=== PATIENT | female | born 1970 | race Caucasian/White ===

== ENCOUNTER 2017-07-12 03:02 | Emergency (ER) | payer BC, SELFPAY ==
[2017-07-12 03:03] VITALS: BP 143/69; PULSE 107; RESP 16; TEMP 36.4; O2SAT 100; BMI 23.0
--- NOTE | 2017-07-12 03:14 | ED.DCSUM_ITS ---
- ER Visit Summary Date of Service: 07/12/17 Chief Complaint: Nausea and vomiting History of Present Illness: The patient is a 47 F nausea and vomiting for the past 2 days. Total of 10 episodes. No hematemesis. No diarrhea. No urinary symptoms. History of diabetes on insulin, does not check her sugars. Unable to keep fluids down. No abdominal pain. No fever, chills, sweats. Denies any sick contacts. No surgeries in the past. No other complaints. Physical Examination: General: Alert and oriented ?3, no acute distress HEENT: Normocephalic, atraumatic. Dry mucosa membranes Neck: supple, nontender. Cardiovascular: Regular rate 96 and rhythm, no murmurs Respiratory: Normal breath sounds, symmetric, no distress Abdomen: Soft, nontender, nondistended. Normal bowel sounds Extremities: Nontender, no edema, pulses intact ?4 Neuro: no focal neurological deficits. Test Results: BG T: 243. BMP: Canceled Emergency Department Course and Treatment: Patient blood glucose 243. Initial attempt with IV Ancef by nursing. I attempted left EJ, during procedure, patient requested I stop due to discomfort. She was given oral fluid prior to the procedure and tolerated it well. She given oral Zofran. She was monitored. Continued p.o. challenge was successful. When tried Gatorade she had a small emesis, however not much. She is tolerating clear fluids. Nontender abdomen. Normal bowel sounds. This time discussed with patient and significant other in the room, continue clear liquids at home. Prescription for Zofran ODT along with Phenergan suppositories to use as needed. Patient follow-up as an outpatient. If any worsening symptoms return to the ED for reevaluation. All questions are answered. Treatment Plan: [] Disposition: Discharge Impression: 1. Nausea and vomiting This note was generated with [employer] dictation software. It may contain incorrect words, spelling, and punctuation that were not noted in review of the chart prior to signing ED Disposition - Plan for ED Patient: Disposition: Home or Assisted Living Chief Complaint: Nausea/Vomiting Diagnosis: Nausea and vomiting Instructions: ED Nausea Vomiting Prescriptions: ProMETHAzine [Phenergan] 25 mg RECTAL Q6H PRN PRN #10 suppos. PRN Reason: Nausea Ondansetron [Zofran Odt] 8 mg PO Q8H PRN PRN #10 PRN Reason: Nausea Referrals: [facility],Out of [NON-STAFF] - 3-5 Days if not improving
[2017-07-12 03:16] LABS: Bedside Glucose 243 mg/dL (70-110)
[2017-07-12] MEDS: Ondansetron ODT 4 MG Tablet 8 MG PO (03:49)
--- NOTE | 2017-07-12 03:52 | ED.RN ---
this rn and another rn attempted iv on pt, both ivs were unsuccessful. dr. lee attempted to place lt ej in pt's neck, that was unsuccessful. dr. lee ordered po medication.
[2017-07-12 05:16] VITALS: RESP 18
== END 2017-07-12 05:18 | disposition home or self-care (01) ==
PROVIDERS: Emergency Provider Emergency Medicine; Family Provider Nurse Practitioner; PCP Nurse Practitioner
DX: R11.2 Nausea with vomiting, unspecified (principal); E11.9 Type 2 diabetes mellitus without complications; Z79.4 Long term (current) use of insulin
CPT/HCPCS: 82962; 99283; J7030; A4216; J2405

== ENCOUNTER 2017-07-12 10:33 | Inpatient (IN) | payer BC, SELFPAY ==
[2017-07-12] VITALS (20 sets, daily range): BP systolic 89–131; BP diastolic 42–88; PULSE 94–116; RESP 16–30; TEMP 35.8–36.7; O2SAT 97–100; BMI 23.0; BMI 22.4
[2017-07-12 10:46] LABS: Bedside Glucose 358 mg/dL (70-110)
--- NOTE | 2017-07-12 11:05 | RAD_ITS ---
STUDY: X-RAY CHEST REASON FOR EXAM: Female, 47 years old. Shortness of breath and TECHNIQUE: Single AP portable view of the chest. COMPARISON: Prior comparison studies are not available for review at this time. FINDINGS: The lungs are clear and expanded. There is no demonstrated pleural abnormality. Normal size heart. Normal mediastinum and rob. Normal visualized pulmonary arteries. Normal visualized aortic arch and descending thoracic aorta. Normal visualized thoracic spine. Normal visualized ribs, clavicles, and shoulders. There is no demonstrated abnormality of the visualized soft tissue structures of the upper abdomen. RAD/Chest 1 View (Portable) IMPRESSION: No active pulmonary disease. Electronically Signed: Roddy Alfredo MD at 11:50 EST Tel , Service support ,
--- NOTE | 2017-07-12 11:05 | EKG12_ITS ---
Test Reason : WEAKNESS Blood Pressure : / mmHG Vent. Rate : 099 BPM Atrial Rate : 099 BPM P-R Int : 140 ms QRS Dur : 078 ms QT Int : 390 ms P-R-T Axes : 067 059 035 degrees QTc Int : 500 ms Normal sinus rhythm Nonspecific ST and T wave abnormality Prolonged QT Abnormal ECG Confirmed by MARKELL VEGA, DIETER ([id number]), health editor LINDA TYSON ([id number]) on 07/14/2017 3:02:42 PM Referred By: VIOLET Confirmed By:DIETER GUILLAUME MD
--- NOTE | 2017-07-12 11:07 | ED.VISSUMM ---
- ER Visit Summary Date of Service: 07/12/17 Chief Complaint: [] Generalized weakness, shortness of breath History of Present Illness: The patient is a 47 F [] complaining of generalized malaise, weakness, shortness of breath. Patient reports she was discharged from this emergency department approximately 6 hours ago. She reports she is a diabetic on insulin who is noncompliant. Review of records from the visit several hours ago reveals a blood sugar of 243. The adult friend at the bedside reports that he took her home but was unable to get her prescription for nausea medicine filled. She is here with further nausea and shortness of breath. She denies fevers. Physical Examination: [] Afebrile, vital signs stable. Cardiovascular exam is regular rate and rhythm. Lungs are clear to auscultation, the patient is tachypneic. Abdomen is soft and nontender. There is no lower extremity edema. Test Results: [] Blood cell count elevated 23.8. Sodium measured 131. Calcium measured 6.3. Bicarb was 4.0. Glucose 358. LFTs normal. Troponin negative. Lactic acid elevated 2.3. Serum ketones positive. Chest x-ray negative. U tox pending at this time. EKG shows peak T waves with normal sinus rhythm, rate of 99 without ischemic changes. Repeat EKG shows improvement of T-wave morphology. Emergency Department Course and Treatment: [] Patient evaluated and the diagnosis of diabetic ketoacidosis was revealed. Patient was started on insulin drip after a liter normal saline bolus. Patient was started on insulin drip. Case discussed with hospitalist. Patient will be admitted to the ICU. Treatment Plan: [] Admit to ICU for insulin drip. Disposition: [] Admit, critical. Impression: [] Diabetic ketoacidosis Hypokalemia Medication noncompliance Critical CARE time: 35 minutes This note was generated with [employer] dictation software. It may contain incorrect words, spelling, and punctuation that were not noted in review of the chart prior to signing ED Disposition - Plan for ED Patient: Chief Complaint: Weakness Referrals: Valentina Jeffers, LINO-C [Primary Care Provider] -
--- NOTE | 2017-07-12 11:09 | NURSING ---
NO OLD EKGS
[2017-07-12 11:33] LABS: Absolute Lymphocyte Count 1.84 X10^3/ul (0.83-4.51); Absolute Neutrophil Count 19.3 X10^3/uL (2.0-7.7); Basophil# 0.13 X10^3/uL; Basophil% 0.5 % (0-1); Eosinophil# 0.05 X10^3/uL; Eosinophils% 0.2 % (0-5); Hematocrit 43.9 % (37-47); Hemoglobin 14.1 g/dl (12.0-15.0); Lymphocyte # 1.84 X10^3/ul (4.0); Lymphocyte % 7.7 % (19-41); Mean Corp Hgb Conc 32.1 g/gl (32-36); Mean Corpuscular Hgb 30.9 pg (27.0-32.0); Mean Corpuscular Volume 96.1 fL (81-99); Monocyte# 1.98 X10^3/uL; Monocyte% 8.3 % (0-10); Neutrophil # 19.29 X10^3/uL (2.7-7.7); Platelet Count 429 K/mm3 (150-450); RBC Distribution Width CV 13.1 % (11.6-14.6); RBC Distribution Width SD 45.9 fl (35.1-43.9); Red Blood Count 4.57 M/mm3 (4.2-5.4); White Blood Count 23.8 K/mm3 (4.4-11.0)
[2017-07-12 11:38] LABS: Differential Indicated SCAN CRITERIA MET; POSITIVE COUNT YES; POSITIVE DIFFERENTIAL YES; POSITIVE MORPHOLOGY YES
[2017-07-12 11:51] LABS: Differential Comment SCANNED
[2017-07-12] MEDS: 0.9% Normal Saline 1,000 ML 1000 ML IV (12:00)
[2017-07-12 12:02] LABS: ALB/GLOB Ratio 0.7 RATIO (0.9-2.4); AST(SGOT) 19 U/L (15-37); Alanine Aminotransfer ALT/SGPT 21 U/L (13-56); Albumin, Serum 3.4 g/dL (3.2-5.0); Alkaline Phosphatase 128 U/L (45-117); Anion Gap 27 (5-15); BUN 36 mg/dL (7-18); BUN/Creat Ratio 24.3 RATIO (10-20); Calcium,Total 8.4 mg/dL (8.5-10.1); Chloride 100 mmol/L (98-107); Creatinine, Serum 1.48 mg/dL (0.55-1.02); EST Glomerular Filtration Rate 40 mL/min (>60); Est Glom Filt Rate - Afr Amer 49 mL/min (>60); Estimated Creatinine Clearance 38.87 ml/min; Glucose 359 mg/dL (74-106); Potassium 6.3 mmol/L (3.5-5.1); Protein, Total 8.4 g/dL (6.4-8.2); Sodium Level 131 mmol/L (136-145)
[2017-07-12 12:03] LABS: Lactic Acid 2.3 mmol/L (0.4-2.0)
--- NOTE | 2017-07-12 12:13 | EKG12_ITS ---
Test Reason : REPEAT Blood Pressure : / mmHG Vent. Rate : 105 BPM Atrial Rate : 105 BPM P-R Int : 132 ms QRS Dur : 080 ms QT Int : 350 ms P-R-T Axes : 064 063 028 degrees QTc Int : 462 ms Sinus tachycardia Nonspecific ST abnormality Abnormal ECG Confirmed by DIETER GUILLAUME MD ([id number]), editor newspaper LINDA TYSON ([id number]) on 07/14/2017 3:02:59 PM Referred By: VIOLET Confirmed By:DIETER GUILLAUME MD
--- NOTE | 2017-07-12 12:14 | ED.RN ---
lactic 2.3, K+ 6.3, cO2: 4, MD aware and new orders will be entered for DKA
[2017-07-12 12:26] LABS: Bedside Glucose 355 mg/dL (70-110)
--- NOTE | 2017-07-12 12:35 | PCA ---
NO OLD EKG
--- NOTE | 2017-07-12 12:47 | PCM.HP.STD ---
Problem List (1) DKA (diabetic ketoacidoses) Status: Acute (2) Hyperkalemia Status: Acute (3) Metabolic encephalopathy Status: Acute (4) DM2 (diabetes mellitus, type 2) Status: Chronic (5) CKD (chronic kidney disease), stage III Status: Chronic (6) Nausea and vomiting Status: Acute History of Present Illness Date of Admission: 07/12/17 Chief Complaint: nausea and vomiting. The patient is a 47 year old F present s with 3 day history of N/V. History obtained through the patient's friend at bedside as pt is too confused to provide any history. She called the friend early this AM to take her to ED. She was found to be in DKA w hyperkalemia. Received IVF and to receive insulin gtt. Per her friend, she was recently started on Inkovana and has not needed insulin as much. As far as he knows, she has been taking insulin, though, he states he has not seen her in days. He denies that she uses drugs or alcohol.[] Past Medical History Past Medical History (Chronic Problems): Chronic Problems DM2 (diabetes mellitus, type 2) (Chronic) CKD (chronic kidney disease), stage III (Chronic) Allergies codeine phosphate [From Tylenol-Codeine] Allergy (Verified 07/12/17 10:43) Other Home Medications: Ambulatory Orders Medication Instructions Recorded Insulin Aspart [Novolog Flexpen See Protocol SC TIDCM 09/07/16 ([facility])] Insulin NPH Human Isophane 26 unit SQ QHS 09/07/16 [Novolin N] Canagliflozin/Metformin HCl 2 tablet PO DAILY 07/12/17 [Invokamet 150-500 mg Tablet] Cholecalciferol (Vitamin D3) 5,000 unit PO DAILY 07/12/17 [Vitamin D3] Ondansetron [Zofran Odt] 8 mg PO Q8H PRN PRN #10 07/12/17 ProMETHAzine [Phenergan] 25 mg RECTAL Q6H PRN PRN #10 07/12/17 suppos. Smoking Status: Never smoker - *Family History Maternal History Items: - - unable to obtain as the patient is confused. Review of Systems Unable to obtain accurate/complete ROS d/t: unable to obtain as the patient is confused. VTE Information - Inpt Only VTE Present on Admission: No VTE Pharm Prophylaxis ordered?: Yes Patient Problems: Active and Suspected Problems DKA (diabetic ketoacidoses) (Acute) Hyperkalemia (Acute) Metabolic encephalopathy (Acute) - Physical Exam General: Confused, - - uncomfortable. does not interact HEENT: Atraumatic, Normocephalic Oral: No Gingival or Mucosal Lesions/ Ulcerations, Dry Mucosa Neck: No Nodes, Thyroid Normal Size and Texture Lungs: Clear to auscultation, Normal air movement, No rhonchi, No wheeze Cardiovascular: Regular rate, Regular Rhythm, Normal S1, Normal S2, No murmurs Abdomen: Bowel Sounds Present, Soft, Non Tender, Non-Distended, No Hepato-splenomegaly Extremities: No clubbing, No cyanosis, No edema, Capillary Refill Less than 3 Seconds, No Calf Tenderness Skin: No rashes, No breakdown Musculoskeletal: No Tenderness to Palpation of Joints or Extremities, No Muscle Wasting Neurological: Neuro grossly intact, - - moves all extremities spontaneously. Psych/Mental Status: Agitated Vital Signs Temp Pulse Resp BP Pulse Ox 36.2 C L 94 28 H 119/58 L 99 07/12/17 10:33 07/12/17 10:33 07/12/17 10:33 07/12/17 10:33 07/12/17 10:33 Weight: 58.967 kg Body Mass Index (BMI) 23.0 Finger Stick Blood Glucose 355 Laboratory Tests Past 24 Hrs 07/12/17 07/12/17 07/12/17 11:19 11:19 11:19 WBC 23.8 H RBC 4.57 Hgb 14.1 Hct 43.9 MCV 96.1 MCH 30.9 MCHC 32.1 RDW 13.1 RDW Differential 45.9 H Plt Count 429 MPV 10.0 Immature Gran % (Auto) 2.300 H Neut % (Auto) 81.0 H Lymph % (Auto) 7.7 L [place] % (Auto) 8.3 Eos % (Auto) 0.2 Baso % (Auto) 0.5 Absolute Neuts (auto) 19.3 H Absolute Lymphs (auto) 1.84 Total Counted Not Reportable Differential Comment SCANNED Diff Path Review May foll Sodium 131 L Potassium 6.3 H* Chloride 100 Carbon Dioxide 4.0 L* Anion Gap 27 H BUN 36 H Creatinine 1.48 H Estim Creat Clear Calc 38.87 Est GFR (MDRD) Af Amer 49 L Est GFR (MDRD) Non-Af 40 L BUN/Creatinine Ratio 24.3 H Glucose 359 H Lactic Acid Calcium 8.4 L Total Bilirubin 0.40 AST 19 ALT 21 Alkaline Phosphatase 128 H Troponin I < 0.02 Total Protein 8.4 H Albumin 3.4 Globulin 5.0 H Albumin/Globulin Ratio 0.7 L Acetone Level MODERATE H 07/12/17 11:19 WBC RBC Hgb Hct MCV MCH MCHC RDW RDW Differential Plt Count MPV Immature Gran % (Auto) Neut % (Auto) Lymph % (Auto) [place] % (Auto) Eos % (Auto) Baso % (Auto) Absolute Neuts (auto) Absolute Lymphs (auto) Total Counted Differential Comment Diff Path Review Sodium Potassium Chloride Carbon Dioxide Anion Gap BUN Creatinine Estim Creat Clear Calc Est GFR (MDRD) Af Amer Est GFR (MDRD) Non-Af BUN/Creatinine Ratio Glucose Lactic Acid 2.3 H Calcium Total Bilirubin AST ALT Alkaline Phosphatase Troponin I Total Protein Albumin Globulin Albumin/Globulin Ratio Acetone Level POC Glucose 07/12/17 07/12/17 12:22 10:43 POC Glucose 355 H 358 H EKG showed sinus tach w peaked t waves. Assessment/Plan Active and Suspected Problems DKA (diabetic ketoacidoses) (Acute) Hyperkalemia (Acute) Metabolic encephalopathy (Acute) 1. DKA insulin gtt protocol IVF 2. Hyperkalemia secondary to #1 EKG changes recheck K 3. Metabolic encephalopathy baseline, per friend, is normal secondary to above Rx screen ordered 4. 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 DVT proph: LMWH Code Visit Inpatient E&M: 74095 Init Hosp L3
--- NOTE | 2017-07-12 12:56 | HP.PCM_ITS ---
Problem List (1) DKA (diabetic ketoacidoses) Status: Acute (2) Hyperkalemia Status: Acute (3) Metabolic encephalopathy Status: Acute (4) DM2 (diabetes mellitus, type 2) Status: Chronic (5) CKD (chronic kidney disease), stage III Status: Chronic (6) Nausea and vomiting Status: Acute History of Present Illness Date of Admission: 07/12/17 Chief Complaint: nausea and vomiting. The patient is a 47 year old F present s with 3 day history of N/V. History obtained through the patient's friend at bedside as pt is too confused to provide any history. She called the friend early this AM to take her to ED. She was found to be in DKA w hyperkalemia. Received IVF and to receive insulin gtt. Per her friend, she was recently started on Inkovana and has not needed insulin as much. As far as he knows, she has been taking insulin, though, he states he has not seen her in days. He denies that she uses drugs or alcohol.[] Past Medical History Past Medical History (Chronic Problems): Chronic Problems DM2 (diabetes mellitus, type 2) (Chronic) CKD (chronic kidney disease), stage III (Chronic) Allergies codeine phosphate [From Tylenol-Codeine] Allergy (Verified 07/12/17 10:43) Other Home Medications: Ambulatory Orders Medication Instructions Recorded Insulin Aspart [Novolog Flexpen See Protocol SC TIDCM 09/07/16 ([facility])] Insulin NPH Human Isophane 26 unit SQ QHS 09/07/16 [Novolin N] Canagliflozin/Metformin HCl 2 tablet PO DAILY 07/12/17 [Invokamet 150-500 mg Tablet] Cholecalciferol (Vitamin D3) 5,000 unit PO DAILY 07/12/17 [Vitamin D3] Ondansetron [Zofran Odt] 8 mg PO Q8H PRN PRN #10 07/12/17 ProMETHAzine [Phenergan] 25 mg RECTAL Q6H PRN PRN #10 07/12/17 suppos. Smoking Status: Never smoker - *Family History Maternal History Items: - - unable to obtain as the patient is confused. Review of Systems Unable to obtain accurate/complete ROS d/t: unable to obtain as the patient is confused. VTE Information - Inpt Only VTE Present on Admission: No VTE Pharm Prophylaxis ordered?: Yes Patient Problems: Active and Suspected Problems DKA (diabetic ketoacidoses) (Acute) Hyperkalemia (Acute) Metabolic encephalopathy (Acute) - Physical Exam General: Confused, - - uncomfortable. does not interact HEENT: Atraumatic, Normocephalic Oral: No Gingival or Mucosal Lesions/ Ulcerations, Dry Mucosa Neck: No Nodes, Thyroid Normal Size and Texture Lungs: Clear to auscultation, Normal air movement, No rhonchi, No wheeze Cardiovascular: Regular rate, Regular Rhythm, Normal S1, Normal S2, No murmurs Abdomen: Bowel Sounds Present, Soft, Non Tender, Non-Distended, No Hepato- splenomegaly Extremities: No clubbing, No cyanosis, No edema, Capillary Refill Less than 3 Seconds, No Calf Tenderness Skin: No rashes, No breakdown Musculoskeletal: No Tenderness to Palpation of Joints or Extremities, No Muscle Wasting Neurological: Neuro grossly intact, - - moves all extremities spontaneously. Psych/Mental Status: Agitated Vital Signs Temp Pulse Resp BP Pulse Ox 36.2 C L 94 28 H 119/58 L 99 07/12/17 10:33 07/12/17 10:33 07/12/17 10:33 07/12/17 10:33 07/12/17 10:33 Weight: 58.967 kg Body Mass Index (BMI) 23.0 Finger Stick Blood Glucose 355 Laboratory Tests Past 24 Hrs 07/12/17 07/12/17 07/12/17 11:19 11:19 11:19 WBC 23.8 H RBC 4.57 Hgb 14.1 Hct 43.9 MCV 96.1 MCH 30.9 MCHC 32.1 RDW 13.1 RDW Differential 45.9 H Plt Count 429 MPV 10.0 Immature Gran % (Auto) 2.300 H Neut % (Auto) 81.0 H Lymph % (Auto) 7.7 L [place] % (Auto) 8.3 Eos % (Auto) 0.2 Baso % (Auto) 0.5 Absolute Neuts (auto) 19.3 H Absolute Lymphs (auto) 1.84 Total Counted Not Reportable Differential Comment SCANNED Diff Path Review May foll Sodium 131 L Potassium 6.3 H* Chloride 100 Carbon Dioxide 4.0 L* Anion Gap 27 H BUN 36 H Creatinine 1.48 H Estim Creat Clear Calc 38.87 Est GFR (MDRD) Af Amer 49 L Est GFR (MDRD) Non-Af 40 L BUN/Creatinine Ratio 24.3 H Glucose 359 H Lactic Acid Calcium 8.4 L Total Bilirubin 0.40 AST 19 ALT 21 Alkaline Phosphatase 128 H Troponin I < 0.02 Total Protein 8.4 H Albumin 3.4 Globulin 5.0 H Albumin/Globulin Ratio 0.7 L Acetone Level MODERATE H 07/12/17 11:19 WBC RBC Hgb Hct MCV MCH MCHC RDW RDW Differential Plt Count MPV Immature Gran % (Auto) Neut % (Auto) Lymph % (Auto) [place] % (Auto) Eos % (Auto) Baso % (Auto) Absolute Neuts (auto) Absolute Lymphs (auto) Total Counted Differential Comment Diff Path Review Sodium Potassium Chloride Carbon Dioxide Anion Gap BUN Creatinine Estim Creat Clear Calc Est GFR (MDRD) Af Amer Est GFR (MDRD) Non-Af BUN/Creatinine Ratio Glucose Lactic Acid 2.3 H Calcium Total Bilirubin AST ALT Alkaline Phosphatase Troponin I Total Protein Albumin Globulin Albumin/Globulin Ratio Acetone Level POC Glucose 07/12/17 07/12/17 12:22 10:43 POC Glucose 355 H 358 H EKG showed sinus tach w peaked t waves. Assessment/Plan Active and Suspected Problems DKA (diabetic ketoacidoses) (Acute) Hyperkalemia (Acute) Metabolic encephalopathy (Acute) 1. DKA * insulin gtt protocol * IVF 2. Hyperkalemia * secondary to #1 * EKG changes * recheck K 3. Metabolic encephalopathy * baseline, per friend, is normal * secondary to above * Rx screen ordered 4. 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 DVT proph: LMWH Code Visit Inpatient E&M: 54153 Init Hosp L3
[2017-07-12] MEDS: LORazepam 2 MG/ML Syringe 1 MG IV (13:03)
[2017-07-12 13:16] LABS: Bacteria 0 SEEN /hpf (None Seen); Mucous, Urine 0 SEEN /hpf (<or=2+); Squamous Epithelial Cells - UA 0 SEEN /hpf (5-10); White Blood Cells 0 SEEN /hpf (0-5)
[2017-07-12 13:18] LABS: Color, Urine Yellow (Yellow); Glucose, Dipstick 1000 mg/dl (Normal); Leukocyte Esterase-Dipstick Negative /ul (Negative); Nitrite-Dipstick Negative (Negative); Occult Blood-Urine 150 /ul (Negative); Protein-Dipstick 30 mg/dl (Negative); Specific Gravity, Urine 1.015 (1.002-1.030); Urine Bilirubin Dipstick Negative (Negative); Urine Clarity Sl. Cloudy (Clear); Urine Urobilinogen Normal (Normal)
[2017-07-12 13:26] LABS: Ketone-Dipstick 150 mg/dl (Negative)
[2017-07-12 13:27] LABS: Red Blood Cells-Urine 0-5 SEEN /hpf (0-5)
[2017-07-12] MEDS: 0.9% Normal Saline 1,000 ML 999 ML IV (13:30)
[2017-07-12 13:33] LABS: Amphetamine Urine VISTA NEGATIVE (<1000 ng/mL); Barbiturate Urine VISTA NEGATIVE (< 200 ng/mL); Benzodiazepine Urine VISTA NEGATIVE (< 200 ng/mL); Cocaine Urine VISTA NEGATIVE (< 300 ng/mL); Ecstacy Urine VISTA NEGATIVE (< 500 ng/mL); Methadone Urine VISTA NEGATIVE (< 300 ng/mL); PCP Urine VISTA NEGATIVE (< 25 ng/mL); THC Urine VISTA NEGATIVE (< 50 ng/mL); Vista UDS pH Range 5
--- NOTE | 2017-07-12 13:39 | NURSING ---
ICU 2 DKA ERNST
[2017-07-12 14:01] LABS: Bedside Glucose 375 mg/dL (70-110)
[2017-07-12 14:31] LABS: Base Excess < -30 mmol/L (-2 to +2); Bicarbonate 1.6 mmol/L (22-26); Blood Gas Specimen Type ART; O2 Delivery Device Room Air; PO2 137 mmHG (75-100); SITE R Radial; SO2 94 % (95-99); Time Given 1412; Total Carbon Dioxide < 5 mmol/L; pCO2 11.5 mmHg (35-45); pH 6.74 (7.35-7.45)
[2017-07-12 14:57] LABS: Absolute Lymphocyte Count 2.51 X10^3/ul (0.83-4.51); Absolute Neutrophil Count 19.1 X10^3/uL (2.0-7.7); Basophil# 0.12 X10^3/uL; Basophil% 0.5 % (0-1); Differential Indicated SCAN CRITERIA MET; Eosinophil# 0.06 X10^3/uL; Eosinophils% 0.2 % (0-5); Hematocrit 39.7 % (37-47); Hemoglobin 12.6 g/dl (12.0-15.0); Lymphocyte # 2.51 X10^3/ul (4.0); Lymphocyte % 10.2 % (19-41); Mean Corp Hgb Conc 31.7 g/gl (32-36); Mean Corpuscular Hgb 30.4 pg (27.0-32.0); Mean Corpuscular Volume 95.9 fL (81-99); Mean Platelet Vol. 9.7 fl (6.2-12.0); Monocyte# 2.31 X10^3/uL; Monocyte% 9.4 % (0-10); Neutrophil # 19.11 X10^3/uL (2.7-7.7); Neutrophil % 77.9 % (47-70); POSITIVE COUNT YES; POSITIVE DIFFERENTIAL YES; POSITIVE MORPHOLOGY YES; Platelet Count 361 K/mm3 (150-450); RBC Distribution Width SD 45.1 fl (35.1-43.9); Red Blood Count 4.14 M/mm3 (4.2-5.4); White Blood Count 24.6 K/mm3 (4.4-11.0)
[2017-07-12 15:09] LABS: Lactic Acid 1.8 mmol/L (0.4-2.0)
[2017-07-12 15:18] LABS: Differential Comment SCANNED
--- NOTE | 2017-07-12 15:19 | NURSING ---
Dr. Gutierrez at bedside for central line insertion
--- NOTE | 2017-07-12 15:21 | NURSING ---
Insulin drip off for approx 30mins d/t no iv access. Restarted at 1510.
[2017-07-12 15:23] LABS: Reflex Lactate? Y
[2017-07-12 15:39] LABS: Anion Gap 24 (5-15); BUN 37 mg/dL (7-18); BUN/Creat Ratio 27.6 RATIO (10-20); Calcium,Total 7.3 mg/dL (8.5-10.1); Chloride 108 mmol/L (98-107); Creatinine, Serum 1.34 mg/dL (0.55-1.02); EST Glomerular Filtration Rate 45 mL/min (>60); Est Glom Filt Rate - Afr Amer 55 mL/min (>60); Estimated Creatinine Clearance 42.93 ml/min; Glucose 325 mg/dL (74-106); Potassium 5.5 mmol/L (3.5-5.1); Sodium Level 136 mmol/L (136-145)
[2017-07-12 15:52] LABS: M R Staph aureus DNA By PCR Negative (Negative); Probe Check PASS; Specimen Processing Control PASS
--- NOTE | 2017-07-12 15:57 | RAD_ITS ---
STUDY: X-RAY CHEST REASON FOR EXAM: Female, 47 years old. Unsuccessful central line attempt. Evaluate for pneumothorax. TECHNIQUE: Frontal view of the chest COMPARISON: 07/12/2017 FINDINGS: The lungs are clear. There are no pleural effusions. There is no pneumothorax. The heart is normal in size. The visualized osseous structures are within normal limits. RAD/Chest 1 View (Portable) IMPRESSION: No acute thoracic pathology. No pneumothorax. Electronically Signed: Jhonatan Ruby, at 16:34 EST Tel , Service support ,
--- NOTE | 2017-07-12 16:15 | PCM.OP.BLANK ---
Problem List (1) DKA (diabetic ketoacidoses) Status: Acute (2) Hyperkalemia Status: Acute (3) Metabolic encephalopathy Status: Acute (4) DM2 (diabetes mellitus, type 2) Status: Chronic (5) CKD (chronic kidney disease), stage III Status: Chronic (6) Nausea and vomiting Status: Acute Operative Report Date of Procedure: 07/12/17 Right IJ triple lumen catheter attempt Reason for procedure, emergent IV access for diabetic ketoacidosis, hyperkalemia. Consent could not be obtained from patient as she is confused and no family for murmurs or readily available. Area was prepped and draped in a sterile fashion. Area was anesthetized with local lidocaine. Using ultrasound guidance the internal jugular vein was found. Was cannulated but guidewire could not be advanced. We attempted again guidewires placed but then was pulled out when the cannulating needle was drawn out as well. Attempted again with similar results and unable to advance a guidewire. Procedure was aborted after's 4 attempts. No obvious complications. Estimated blood loss was 10 cc. Follow-up chest x-ray, preliminary view, showed no pneumothorax. Formal radiology review is pending. Right femoral triple lumen catheter placement Reason for procedure was emergent IV access for her diabetic ketoacidosis and hyperkalemia. I proceeded with femoral approach as internal jugular attempts were unsuccessful. Area was prepped and draped in sterile fashion. Area anesthetized with lidocaine. Using modified Seldinger technique the femoral vein was cannulated, guidewire advanced. And skin was nicked by the guidewire and a dilator was advanced and then removed and then the triple lumen catheter was advanced over guidewire. All ports pablo back and flushed easily. The treatment catheter was sutured in place. Patient tolerated the procedure well. Is able to be use at this time. Code Visit Procedures: 42839 Insert Non-tunnel CV Cath - right femoral TLC placement.
[2017-07-12 16:16] LABS: Bedside Glucose 284 mg/dL (70-110)
--- NOTE | 2017-07-12 16:30 | NURSING ---
R Fem central line inserted by Dr. Gutierrez after several unsuccessful attempts to insert RIJ TLC. Pt tolerated fairly well.
[2017-07-12] MEDS: 0.9% Normal Saline 1,000 ML 500 ML IV (16:37)
[2017-07-12] MEDS: 0.9% NaCl Peripheral Flush Adult/Peds IV ×3 (16:52→18:46)
--- NOTE | 2017-07-12 16:56 | NURSING ---
Med titration delayed d/t insertion of central line and med on hold d/t no IV access for brief period
[2017-07-12 17:06] LABS: Bedside Glucose 218 mg/dL (70-110)
[2017-07-12] MEDS: Dext 5%-0.45% NS 1,000 ML 150 ML IV (18:05)
[2017-07-12 18:11] LABS: Bedside Glucose 177 mg/dL (70-110)
[2017-07-12 19:01] LABS: Bedside Glucose 181 mg/dL (70-110)
[2017-07-12 19:01] LABS: Anion Gap 19 (5-15); BUN 37 mg/dL (7-18); BUN/Creat Ratio 31.6 RATIO (10-20); Calcium,Total 7.2 mg/dL (8.5-10.1); Chloride 116 mmol/L (98-107); Creatinine, Serum 1.17 mg/dL (0.55-1.02); EST Glomerular Filtration Rate 53 mL/min (>60); Est Glom Filt Rate - Afr Amer 64 mL/min (>60); Estimated Creatinine Clearance 49.17 ml/min; Glucose 168 mg/dL (74-106); Potassium 4.7 mmol/L (3.5-5.1); Sodium Level 141 mmol/L (136-145)
[2017-07-12 20:06] LABS: Bedside Glucose 176 mg/dL (70-110)
[2017-07-12 21:06] LABS: Bedside Glucose 139 mg/dL (70-110)
[2017-07-12 22:05] LABS: Bedside Glucose 142 mg/dL (70-110)
[2017-07-12 22:40] LABS: Anion Gap 17 (5-15); BUN 35 mg/dL (7-18); BUN/Creat Ratio 29.9 RATIO (10-20); Calcium,Total 7.3 mg/dL (8.5-10.1); Chloride 119 mmol/L (98-107); Creatinine, Serum 1.17 mg/dL (0.55-1.02); EST Glomerular Filtration Rate 53 mL/min (>60); Est Glom Filt Rate - Afr Amer 64 mL/min (>60); Estimated Creatinine Clearance 49.17 ml/min; Glucose 147 mg/dL (74-106); Potassium 4.1 mmol/L (3.5-5.1); Sodium Level 144 mmol/L (136-145)
[2017-07-12 23:11] LABS: Bedside Glucose 130 mg/dL (70-110)
[2017-07-12 23:40] LABS: Allen Test POS; Base Excess -21 mmol/L (-2 to +2); Bicarbonate 7.8 mmol/L (22-26); Blood Gas Specimen Type ART; O2 Delivery Device Room Air; PO2 96 mmHG (75-100); SITE R Radial; SO2 95 % (95-99); Time Given 2325; Total Carbon Dioxide 8 mmol/L; pCO2 21.7 mmHg (35-45); pH 7.17 (7.35-7.45)
[2017-07-13] VITALS (27 sets, daily range): BP systolic 95–120; BP diastolic 49–66; PULSE 95–117; RESP 17–26; TEMP 36.8–38.7; O2SAT 97–100
[2017-07-13 00:16] LABS: Bedside Glucose 133 mg/dL (70-110)
[2017-07-13 01:11] LABS: Bedside Glucose 116 mg/dL (70-110)
[2017-07-13 03:07] LABS: Bedside Glucose 112 mg/dL (70-110)
[2017-07-13 03:26] LABS: Absolute Lymphocyte Count 0.87 X10^3/ul (0.83-4.51); Absolute Neutrophil Count 15.2 X10^3/uL (2.0-7.7); Basophil# 0.04 X10^3/uL; Basophil% 0.2 % (0-1); Differential Indicated SCAN CRITERIA MET; Hematocrit 33.8 % (37-47); Hemoglobin 12.1 g/dl (12.0-15.0); Lymphocyte # 0.87 X10^3/ul (4.0); Lymphocyte % 4.7 % (19-41); Mean Corp Hgb Conc 35.8 g/gl (32-36); Mean Corpuscular Hgb 31.2 pg (27.0-32.0); Mean Corpuscular Volume 87.1 fL (81-99); Mean Platelet Vol. 8.7 fl (6.2-12.0); Monocyte# 2.36 X10^3/uL; Monocyte% 12.7 % (0-10); Neutrophil # 15.19 X10^3/uL (2.7-7.7); Neutrophil % 81.4 % (47-70); POSITIVE COUNT NO; POSITIVE DIFFERENTIAL YES; POSITIVE MORPHOLOGY NO; Platelet Count 292 K/mm3 (150-450); RBC Distribution Width CV 12.5 % (11.6-14.6); RBC Distribution Width SD 39.4 fl (35.1-43.9); Red Blood Count 3.88 M/mm3 (4.2-5.4); White Blood Count 18.7 K/mm3 (4.4-11.0)
[2017-07-13 03:40] LABS: Anion Gap 13 (5-15); BUN 29 mg/dL (7-18); BUN/Creat Ratio 23.8 RATIO (10-20); Calcium,Total 7.7 mg/dL (8.5-10.1); Chloride 120 mmol/L (98-107); Creatinine, Serum 1.22 mg/dL (0.55-1.02); EST Glomerular Filtration Rate 50 mL/min (>60); Est Glom Filt Rate - Afr Amer 61 mL/min (>60); Estimated Creatinine Clearance 47.16 ml/min; Glucose 107 mg/dL (74-106); Potassium 3.7 mmol/L (3.5-5.1); Sodium Level 147 mmol/L (136-145)
[2017-07-13 04:10] LABS: Differential Comment SCANNED
[2017-07-13 04:11] LABS: Bedside Glucose 99 mg/dL (70-110)
[2017-07-13 04:22] LABS: Phosphorus 0.4 mg/dL (2.5-4.9)
[2017-07-13] MEDS: CHLORHEXIDINE GLUC 2% CLOTH 1 EACH TOWELETTE TOPICAL (05:14)
[2017-07-13 05:26] LABS: Bedside Glucose 96 mg/dL (70-110)
[2017-07-13 05:26] LABS: Allen Test POS; Base Excess -13 mmol/L (-2 to +2); Bicarbonate 13.6 mmol/L (22-26); Blood Gas Specimen Type ART; O2 Delivery Device Room Air; PO2 96 mmHG (75-100); SITE R Radial; SO2 97 % (95-99); Time Given 515; Total Carbon Dioxide 14 mmol/L; pCO2 27.1 mmHg (35-45); pH 7.31 (7.35-7.45)
--- NOTE | 2017-07-13 05:55 | EKG12_ITS ---
Test Reason : AM EKG Blood Pressure : / mmHG Vent. Rate : 101 BPM Atrial Rate : 101 BPM P-R Int : 126 ms QRS Dur : 074 ms QT Int : 328 ms P-R-T Axes : 052 058 046 degrees QTc Int : 425 ms Sinus tachycardia Otherwise normal ECG When compared with ECG of 12-JUL-2017 12:34, MANUAL COMPARISON REQUIRED, DATA IS UNCONFIRMED Confirmed by MARKELL VEGA, DIETER ([id number]), video effects editor LINDA TYSON ([id number]) on 07/16/2017 4:19:10 PM Referred By: ERNST Confirmed By:DIETER GUILLAUME MD
[2017-07-13 06:15] LABS: Bedside Glucose 75 mg/dL (70-110)
[2017-07-13 06:43] LABS: Anion Gap 8 (5-15); BUN 28 mg/dL (7-18); BUN/Creat Ratio 26.2 RATIO (10-20); Calcium,Total 7.5 mg/dL (8.5-10.1); Chloride 124 mmol/L (98-107); Creatinine, Serum 1.07 mg/dL (0.55-1.02); EST Glomerular Filtration Rate 58 mL/min (>60); Est Glom Filt Rate - Afr Amer 71 mL/min (>60); Estimated Creatinine Clearance 53.77 ml/min; Glucose 83 mg/dL (74-106); Potassium 3.9 mmol/L (3.5-5.1); Sodium Level 150 mmol/L (136-145)
[2017-07-13 07:26] LABS: Bedside Glucose 72 mg/dL (70-110)
[2017-07-13] MEDS: 0.9% NaCl Peripheral Flush Adult/Peds IV ×2 (07:49→15:58)
[2017-07-13] MEDS: 0.45% Normal Saline 1,000 ML 125 ML IV ×2 (07:49→15:58)
[2017-07-13] MEDS: Enoxaparin 40 MG/0.4 ML Syringe SC (07:54)
[2017-07-13 08:31] LABS: Bedside Glucose 48 mg/dL (70-110)
[2017-07-13] MEDS: Dextrose 50%-Water 25 GM/50 ML DISP.SYRIN IV (08:32)
--- NOTE | 2017-07-13 08:41 | PCM.PN.HOSP ---
Patient Problems: Active and Suspected Problems DKA (diabetic ketoacidoses) (Acute) Hyperkalemia (Acute) Metabolic encephalopathy (Acute) Subjective: Becoming more alert but though still confused overall. Vitals/I&O's: Vital Signs Temp Pulse Resp BP Pulse Ox 37.2 C 104 H 22 H 111/59 L 99 07/13/17 04:00 07/13/17 06:00 07/13/17 06:00 07/13/17 06:00 07/13/17 06:00 Oxygen Delivery Method Room Air Weight: 56.2 kg Body Mass Index (BMI) 22.4 Finger Stick Blood Glucose 181 Intake and Output for Last 24 Hours 07/11/17 07/12/17 07/14/17 23:59 23:59 00:59 Intake Total 3077.4 / 3077.4 937 / 937 Output Total 2450 / 2450 1000 / 1000 Balance 627.4 / 627.4 -63 / -63 General: Cooperative, No apparent distress, Confused - But improved from the 10th HEENT: Atraumatic, Normocephalic Neck: No Nodes, Thyroid Normal Size and Texture Lungs: Clear to auscultation, Normal air movement, No rhonchi, No wheeze Cardiovascular: Regular rate, Regular Rhythm, Normal S1, Normal S2, No murmurs Abdomen: Bowel Sounds Present, Soft, Non Tender, Non-Distended, No Hepato-splenomegaly Extremities: No edema, No Calf Tenderness Skin: No rashes, No breakdown Psych/Mental Status: Normal Affect, Appropriate Laboratory Results 07/12/17 13:07: Urine Color Yellow, Urine Clarity Sl. Cloudy, Urine pH 5.0, Ur Specific [place] 1.015, Urine Protein 30 H, Urine Glucose (UA) 1000 H, Urine Ketones 150 H, Urine Occult Blood 150 H, Urine Nitrite Negative, Urine Bilirubin Negative, Urine Urobilinogen Normal, Ur Leukocyte Esterase Negative, Urine RBC 0-5 SEEN, Urine WBC 0 SEEN, Ur Squamous Epith Cells 0 SEEN, Urine Bacteria 0 SEEN, Urine Mucus 0 SEEN 07/12/17 13:07: Urine Opiates Screen NEGATIVE, Urine Methadone Screen NEGATIVE, Ur Barbiturates Screen NEGATIVE, Ur Phencyclidine Scrn NEGATIVE, Ur Amphetamines Screen NEGATIVE, U Methamphetamin-MDMA NEGATIVE, U Benzodiazepines Scrn NEGATIVE, Urine Cocaine Screen NEGATIVE, U Cannabinoids Screen NEGATIVE, Ur Drug Screen Comment 07/12/17 13:43: POC Glucose 375 H 07/12/17 14:14: Specimen Type ART, Sample Site R Radial, pH 6.74 L*, Bicarbonate Actual 1.6 L, POC Total CO2 < 5, Base Excess < -30 L, O2 Saturation 94 L, ABG pCO2 11.5 L*, ABG pO2 137 H, O2 Delivery Device Room Air, Blood Gas Notified Whom SHANE VEGA, Blood Gas Notified Time 1412 07/12/17 14:25: WBC 24.6 H, RBC 4.14 L, Hgb 12.6, Hct 39.7, MCV 95.9, MCH 30.4, MCHC 31.7 L, RDW 13.0, RDW Differential 45.1 H, Plt Count 361, MPV 9.7, Immature Gran % (Auto) 1.800 H, Neut % (Auto) 77.9 H, Lymph % (Auto) 10.2 L, [place] % (Auto) 9.4, Eos % (Auto) 0.2, Baso % (Auto) 0.5, Absolute Neuts (auto) 19.1 H, Absolute Lymphs (auto) 2.51, Total Counted Not Reportable, Differential Comment SCANNED 07/12/17 14:25: Sodium 136, Potassium 5.5 H, Chloride 108 H, Carbon Dioxide 4.0 L*, Anion Gap 24 H, BUN 37 H, Creatinine 1.34 H, Estim Creat Clear Calc 42.93, Est GFR (MDRD) Af Amer 55 L, Est GFR (MDRD) Non-Af 45 L, BUN/Creatinine Ratio 27.6 H, Glucose 325 H, Calcium 7.3 L 07/12/17 14:25: Lactic Acid 1.8 07/12/17 14:25: MRSA (PCR) Negative 07/12/17 16:09: POC Glucose 284 H 07/12/17 16:54: POC Glucose 218 H 07/12/17 17:57: POC Glucose 177 H 07/12/17 18:30: Sodium 141, Potassium 4.7, Chloride 116 H, Carbon Dioxide 6.0 L*, Anion Gap 19 H, BUN 37 H, Creatinine 1.17 H, Estim Creat Clear Calc 49.17, Est GFR (MDRD) Af Amer 64, Est GFR (MDRD) Non-Af 53 L, BUN/Creatinine Ratio 31.6 H, Glucose 168 H, Calcium 7.2 L 07/12/17 18:56: POC Glucose 181 H 07/12/17 19:56: POC Glucose 176 H 07/12/17 20:57: POC Glucose 139 H 07/12/17 22:00: Sodium 144, Potassium 4.1, Chloride 119 H, Carbon Dioxide 8.0 L*, Anion Gap 17 H, BUN 35 H, Creatinine 1.17 H, Estim Creat Clear Calc 49.17, Est GFR (MDRD) Af Amer 64, Est GFR (MDRD) Non-Af 53 L, BUN/Creatinine Ratio 29.9 H, Glucose 147 H, Calcium 7.3 L 07/12/17 22:01: POC Glucose 142 H 07/12/17 23:06: POC Glucose 130 H 07/12/17 23:32: Specimen Type ART, Sample Site R Radial, pH 7.17 L*, Bicarbonate Actual 7.8 L, POC Total CO2 8, Base Excess -21 L, O2 Saturation 95, ABG pCO2 21.7 L, ABG pO2 96, Deric Test POS, O2 Delivery Device Room Air, Blood Gas Notified Whom SHANE VEGA, Blood Gas Notified Time 4309 07/12/17 23:59: POC Glucose 133 H 07/13/17 01:05: POC Glucose 116 H 07/13/17 01:59: POC Glucose 112 H 07/13/17 03:10: Sodium 147 H, Potassium 3.7, Chloride 120 H, Carbon Dioxide 14.0 L, Anion Gap 13, BUN 29 H, Creatinine 1.22 H, Estim Creat Clear Calc 47.16, Est GFR (MDRD) Af Amer 61, Est GFR (MDRD) Non-Af 50 L, BUN/Creatinine Ratio 23.8 H, Glucose 107 H, Calcium 7.7 L, Magnesium 2.0 07/13/17 03:10: WBC 18.7 H, RBC 3.88 L, Hgb 12.1, Hct 33.8 L, MCV 87.1, MCH 31.2, MCHC 35.8, RDW 12.5, RDW Differential 39.4, Plt Count 292, MPV 8.7, Immature Gran % (Auto) 1.000 H, Neut % (Auto) 81.4 H, Lymph % (Auto) 4.7 L, Russell % (Auto) 12.7 H, Eos % (Auto) 0.0, Baso % (Auto) 0.2, Absolute Neuts (auto) 15.2 H, Absolute Lymphs (auto) 0.87, Total Counted Not Reportable, Differential Comment SCANNED, Diff Path Review September07/13/17 03:10: Phosphorus 0.4 L* 07/13/17 04:06: POC Glucose 99 07/13/17 04:21: Specimen Type ART, Sample Site R Radial, pH 7.31 L, Bicarbonate Actual 13.6 L, POC Total CO2 14, Base Excess -13 L, O2 Saturation 97, ABG pCO2 27.1 L, ABG pO2 96, Deric Test POS, O2 Delivery Device Room Air, Blood Gas Notified Whom HOSP , Blood Gas Notified Time 515 07/13/17 04:53: POC Glucose 96 07/13/17 06:12: POC Glucose 75 07/13/17 06:17: Sodium 150 H, Potassium 3.9, Chloride 124 H, Carbon Dioxide 18.0 L, Anion Gap 8, BUN 28 H, Creatinine 1.07 H, Estim Creat Clear Calc 53.77, Est GFR (MDRD) Af Amer 71, Est GFR (MDRD) Non-Af 58 L, BUN/Creatinine Ratio 26.2 H, Glucose 83, Calcium 7.5 L 07/13/17 07:15: POC Glucose 72 07/13/17 08:27: POC Glucose 48 L Current Medications Chlorhexidine Gluconate () 1 each TOPICAL DAILY SANDY Last Admin: 07/13/17 05:14 Dose: 1 each Dextrose (D50w Syringe) 0 gm IV X1 PRN; Protocol PRN Reason: HYPOGLYCEMIA Last Admin: 07/13/17 08:32 Dose: 25 gm Enoxaparin Sodium (Lovenox) 40 mg SC DAILY@1000 SANDY Last Admin: 07/13/17 07:54 Dose: 40 mg Sodium Chloride () 250 mls @ 15 mls/hr IV .[id number] PRN PRN Reason: SALINE FLUSH Potassium Phosphate 30 mm/ (Sodium Chloride) 260 mls @ 42 mls/hr IV X1 ONE Stop: 07/13/17 10:45 Last Admin: 07/13/17 05:16 Dose: 42 mls/hr Sodium Chloride () 1,000 mls @ 125 mls/hr IV .Q8H SANDY Last Admin: 07/13/17 07:49 Dose: 125 mls/hr Magnesium Hydroxide (Milk Of Magnesia) 30 ml PO DAILY PRN PRN PRN Reason: Constipation Sodium Chloride () 5 - 30 ml IV UD PRN PRN Reason: SALINE FLUSH Last Admin: 07/13/17 07:49 Dose: 10 ml Sodium Chloride () 10 - 40 ml IV UD PRN PRN Reason: MULTILUMEN/HICMAN CATH FLUSH Last Admin: 07/13/17 08:32 Dose: 10 ml Assessment/Plan Active and Suspected Problems DKA (diabetic ketoacidoses) (Acute) Hyperkalemia (Acute) Metabolic encephalopathy (Acute) 1. DKA Resolved Started on Levemir Continue to monitor. 2. Hyperkalemia secondary to #1 Resolved 3. Metabolic encephalopathy baseline, per friend, is normal secondary to above Rx screen negative Improved though still confused. 4. 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 DVT proph: LMWH 6. Disposition: Depends on the patient's mental status and also her blood sugars. If mental status improves and blood sugars are continued to be improved then patient could likely be discharged later on today. If patient is not discharged later on today then patient will be changed over to progressive care unit status. Code Visit Inpatient E&M: [id number] Subs Hosp L2
--- NOTE | 2017-07-13 08:44 | PN_ITS ---
Patient Problems: Active and Suspected Problems DKA (diabetic ketoacidoses) (Acute) Hyperkalemia (Acute) Metabolic encephalopathy (Acute) Subjective: Becoming more alert but though still confused overall. Vitals/I&O's: Vital Signs Temp Pulse Resp BP Pulse Ox 37.2 C 104 H 22 H 111/59 L 99 07/13/17 04:00 07/13/17 06:00 07/13/17 06:00 07/13/17 06:00 07/13/17 06:00 Oxygen Delivery Method Room Air Weight: 56.2 kg Body Mass Index (BMI) 22.4 Finger Stick Blood Glucose 181 Intake and Output for Last 24 Hours 07/11/17 07/12/17 07/14/17 23:59 23:59 00:59 Intake Total 3077.4 / 3077.4 937 / 937 Output Total 2450 / 2450 1000 / 1000 Balance 627.4 / 627.4 -63 / -63 General: Cooperative, No apparent distress, Confused - But improved from the 10th HEENT: Atraumatic, Normocephalic Neck: No Nodes, Thyroid Normal Size and Texture Lungs: Clear to auscultation, Normal air movement, No rhonchi, No wheeze Cardiovascular: Regular rate, Regular Rhythm, Normal S1, Normal S2, No murmurs Abdomen: Bowel Sounds Present, Soft, Non Tender, Non-Distended, No Hepato- splenomegaly Extremities: No edema, No Calf Tenderness Skin: No rashes, No breakdown Psych/Mental Status: Normal Affect, Appropriate Laboratory Results 07/12/17 13:07: Urine Color Yellow, Urine Clarity Sl. Cloudy, Urine pH 5.0, Ur Specific [place] 1.015, Urine Protein 30 H, Urine Glucose (UA) 1000 H, Urine Ketones 150 H, Urine Occult Blood 150 H, Urine Nitrite Negative, Urine Bilirubin Negative, Urine Urobilinogen Normal, Ur Leukocyte Esterase Negative, Urine RBC 0-5 SEEN, Urine WBC 0 SEEN, Ur Squamous Epith Cells 0 SEEN, Urine Bacteria 0 SEEN, Urine Mucus 0 SEEN 07/12/17 13:07: Urine Opiates Screen NEGATIVE, Urine Methadone Screen NEGATIVE, Ur Barbiturates Screen NEGATIVE, Ur Phencyclidine Scrn NEGATIVE, Ur Amphetamines Screen NEGATIVE, U Methamphetamin-MDMA NEGATIVE, U Benzodiazepines Scrn NEGATIVE, Urine Cocaine Screen NEGATIVE, U Cannabinoids Screen NEGATIVE, Ur Drug Screen Comment 07/12/17 13:43: POC Glucose 375 H 07/12/17 14:14: Specimen Type ART, Sample Site R Radial, pH 6.74 L*, Bicarbonate Actual 1.6 L, POC Total CO2 < 5, Base Excess < -30 L, O2 Saturation 94 L, ABG pCO2 11.5 L*, ABG pO2 137 H, O2 Delivery Device Room Air, Blood Gas Notified Whom SHANE VEGA, Blood Gas Notified Time 1412 07/12/17 14:25: WBC 24.6 H, RBC 4.14 L, Hgb 12.6, Hct 39.7, MCV 95.9, MCH 30.4, MCHC 31.7 L, RDW 13.0, RDW Differential 45.1 H, Plt Count 361, MPV 9.7, Immature Gran % (Auto) 1.800 H, Neut % (Auto) 77.9 H, Lymph % (Auto) 10.2 L, [place] % (Auto) 9.4, Eos % (Auto) 0.2, Baso % (Auto) 0.5, Absolute Neuts (auto) 19.1 H, Absolute Lymphs (auto) 2.51, Total Counted Not Reportable, Differential Comment SCANNED 07/12/17 14:25: Sodium 136, Potassium 5.5 H, Chloride 108 H, Carbon Dioxide 4.0 L*, Anion Gap 24 H, BUN 37 H, Creatinine 1.34 H, Estim Creat Clear Calc 42.93, Est GFR (MDRD) Af Amer 55 L, Est GFR (MDRD) Non-Af 45 L, BUN/Creatinine Ratio 27.6 H, Glucose 325 H, Calcium 7.3 L 07/12/17 14:25: Lactic Acid 1.8 07/12/17 14:25: MRSA (PCR) Negative 07/12/17 16:09: POC Glucose 284 H 07/12/17 16:54: POC Glucose 218 H 07/12/17 17:57: POC Glucose 177 H 07/12/17 18:30: Sodium 141, Potassium 4.7, Chloride 116 H, Carbon Dioxide 6.0 L* , Anion Gap 19 H, BUN 37 H, Creatinine 1.17 H, Estim Creat Clear Calc 49.17, Est GFR (MDRD) Af Amer 64, Est GFR (MDRD) Non-Af 53 L, BUN/Creatinine Ratio 31.6 H, Glucose 168 H, Calcium 7.2 L 07/12/17 18:56: POC Glucose 181 H 07/12/17 19:56: POC Glucose 176 H 07/12/17 20:57: POC Glucose 139 H 07/12/17 22:00: Sodium 144, Potassium 4.1, Chloride 119 H, Carbon Dioxide 8.0 L* , Anion Gap 17 H, BUN 35 H, Creatinine 1.17 H, Estim Creat Clear Calc 49.17, Est GFR (MDRD) Af Amer 64, Est GFR (MDRD) Non-Af 53 L, BUN/Creatinine Ratio 29.9 H, Glucose 147 H, Calcium 7.3 L 07/12/17 22:01: POC Glucose 142 H 07/12/17 23:06: POC Glucose 130 H 07/12/17 23:32: Specimen Type ART, Sample Site R Radial, pH 7.17 L*, Bicarbonate Actual 7.8 L, POC Total CO2 8, Base Excess -21 L, O2 Saturation 95, ABG pCO2 21.7 L, ABG pO2 96, Deric Test POS, O2 Delivery Device Room Air, Blood Gas Notified Whom SHANE VEGA, Blood Gas Notified Time 7680 07/12/17 23:59: POC Glucose 133 H 07/13/17 01:05: POC Glucose 116 H 07/13/17 01:59: POC Glucose 112 H 07/13/17 03:10: Sodium 147 H, Potassium 3.7, Chloride 120 H, Carbon Dioxide 14.0 L, Anion Gap 13, BUN 29 H, Creatinine 1.22 H, Estim Creat Clear Calc 47.16 , Est GFR (MDRD) Af Amer 61, Est GFR (MDRD) Non-Af 50 L, BUN/Creatinine Ratio 23.8 H, Glucose 107 H, Calcium 7.7 L, Magnesium 2.0 07/13/17 03:10: WBC 18.7 H, RBC 3.88 L, Hgb 12.1, Hct 33.8 L, MCV 87.1, MCH 31.2 , MCHC 35.8, RDW 12.5, RDW Differential 39.4, Plt Count 292, MPV 8.7, Immature Gran % (Auto) 1.000 H, Neut % (Auto) 81.4 H, Lymph % (Auto) 4.7 L, [place] % (Auto ) 12.7 H, Eos % (Auto) 0.0, Baso % (Auto) 0.2, Absolute Neuts (auto) 15.2 H, Absolute Lymphs (auto) 0.87, Total Counted Not Reportable, Differential Comment SCANNED, Diff Path Review September07/13/17 03:10: Phosphorus 0.4 L* 07/13/17 04:06: POC Glucose 99 07/13/17 04:21: Specimen Type ART, Sample Site R Radial, pH 7.31 L, Bicarbonate Actual 13.6 L, POC Total CO2 14, Base Excess -13 L, O2 Saturation 97, ABG pCO2 27.1 L, ABG pO2 96, Deric Test POS, O2 Delivery Device Room Air, Blood Gas Notified Whom HOSP , Blood Gas Notified Time 515 07/13/17 04:53: POC Glucose 96 07/13/17 06:12: POC Glucose 75 07/13/17 06:17: Sodium 150 H, Potassium 3.9, Chloride 124 H, Carbon Dioxide 18.0 L, Anion Gap 8, BUN 28 H, Creatinine 1.07 H, Estim Creat Clear Calc 53.77, Est GFR (MDRD) Af Amer 71, Est GFR (MDRD) Non-Af 58 L, BUN/Creatinine Ratio 26.2 H, Glucose 83, Calcium 7.5 L 07/13/17 07:15: POC Glucose 72 07/13/17 08:27: POC Glucose 48 L Current Medications Chlorhexidine Gluconate () 1 each TOPICAL DAILY SANDY Last Admin: 07/13/17 05:14 Dose: 1 each Dextrose (D50w Syringe) 0 gm IV X1 PRN; Protocol PRN Reason: HYPOGLYCEMIA Last Admin: 07/13/17 08:32 Dose: 25 gm Enoxaparin Sodium (Lovenox) 40 mg SC DAILY@1000 SANDY Last Admin: 07/13/17 07:54 Dose: 40 mg Sodium Chloride () 250 mls @ 15 mls/hr IV .[id number] PRN PRN Reason: SALINE FLUSH Potassium Phosphate 30 mm/ (Sodium Chloride) 260 mls @ 42 mls/hr IV X1 ONE Stop: 07/13/17 10:45 Last Admin: 07/13/17 05:16 Dose: 42 mls/hr Sodium Chloride () 1,000 mls @ 125 mls/hr IV .Q8H SANDY Last Admin: 07/13/17 07:49 Dose: 125 mls/hr Magnesium Hydroxide (Milk Of Magnesia) 30 ml PO DAILY PRN PRN PRN Reason: Constipation Sodium Chloride () 5 - 30 ml IV UD PRN PRN Reason: SALINE FLUSH Last Admin: 07/13/17 07:49 Dose: 10 ml Sodium Chloride () 10 - 40 ml IV UD PRN PRN Reason: MULTILUMEN/HICMAN CATH FLUSH Last Admin: 07/13/17 08:32 Dose: 10 ml Assessment/Plan Active and Suspected Problems DKA (diabetic ketoacidoses) (Acute) Hyperkalemia (Acute) Metabolic encephalopathy (Acute) 1. DKA * Resolved * Started on Levemir * Continue to monitor. 2. Hyperkalemia * secondary to #1 * Resolved 3. Metabolic encephalopathy * baseline, per friend, is normal * secondary to above * Rx screen negative * Improved though still confused. 4. 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 DVT proph: LMWH 6. Disposition: Depends on the patient's mental status and also her blood sugars. If mental status improves and blood sugars are continued to be improved then patient could likely be discharged later on today. If patient is not discharged later on today then patient will be changed over to progressive care unit status. Code Visit Inpatient E&M: [id number] Subs Hosp L2
[2017-07-13 08:56] LABS: Bedside Glucose 188 mg/dL (70-110)
[2017-07-13 11:11] LABS: Bedside Glucose 148 mg/dL (70-110)
[2017-07-13 11:22] LABS: Anion Gap 12 (5-15); BUN 24 mg/dL (7-18); BUN/Creat Ratio 26.5 RATIO (10-20); Calcium,Total 7.5 mg/dL (8.5-10.1); Chloride 121 mmol/L (98-107); EST Glomerular Filtration Rate 71 mL/min (>60); Est Glom Filt Rate - Afr Amer 86 mL/min (>60); Estimated Creatinine Clearance 63.92 ml/min; Glucose 149 mg/dL (74-106); Potassium 3.9 mmol/L (3.5-5.1); Sodium Level 149 mmol/L (136-145)
[2017-07-13 12:36] LABS: Bedside Glucose 134 mg/dL (70-110)
[2017-07-13] MEDS: Acetaminophen 325 MG Tablet 650 MG PO ×2 (16:12→22:03)
[2017-07-13 17:16] LABS: Bedside Glucose 123 mg/dL (70-110)
[2017-07-13] MEDS: Insulin NPH Human 100 UNITS/ML PEN 26 UNITS SC (21:35)
[2017-07-13 21:41] LABS: Bedside Glucose 139 mg/dL (70-110)
[2017-07-13 22:47] LABS: Mucous, Urine 0 SEEN /hpf (<or=2+)
[2017-07-13 22:54] LABS: Absolute Lymphocyte Count 1.39 X10^3/ul (0.83-4.51); Absolute Neutrophil Count 8.9 X10^3/uL (2.0-7.7); Basophil# 0.01 X10^3/uL; Basophil% 0.1 % (0-1); Eosinophil# 0.01 X10^3/uL; Eosinophils% 0.1 % (0-5); Hemoglobin 10.8 g/dl (12.0-15.0); Lymphocyte # 1.39 X10^3/ul (4.0); Lymphocyte % 12.1 % (19-41); Mean Corp Hgb Conc 34.8 g/gl (32-36); Mean Corpuscular Hgb 30.7 pg (27.0-32.0); Mean Corpuscular Volume 88.1 fL (81-99); Monocyte# 1.15 X10^3/uL; Neutrophil # 8.86 X10^3/uL (2.7-7.7); Neutrophil % 77.4 % (47-70); Platelet Count 235 K/mm3 (150-450); RBC Distribution Width CV 13.7 % (11.6-14.6); RBC Distribution Width SD 43.8 fl (35.1-43.9); Red Blood Count 3.52 M/mm3 (4.2-5.4); White Blood Count 11.5 K/mm3 (4.4-11.0)
[2017-07-13 22:55] LABS: POSITIVE COUNT NO; POSITIVE DIFFERENTIAL NO; POSITIVE MORPHOLOGY NO
[2017-07-13 22:59] LABS: Color, Urine Yellow (Yellow); Glucose, Dipstick 1000 mg/dl (Normal); Leukocyte Esterase-Dipstick 500 /ul (Negative); Nitrite-Dipstick Negative (Negative); Occult Blood-Urine 25 /ul (Negative); Protein-Dipstick Negative (Negative); Urine Bilirubin Dipstick Negative (Negative); Urine Clarity Sl. Cloudy (Clear); Urine Urobilinogen Normal (Normal)
[2017-07-13 23:01] LABS: Ketone-Dipstick 150 mg/dl (Negative)
[2017-07-13 23:02] LABS: Red Blood Cells-Urine 0-5 SEEN /hpf (0-5); Squamous Epithelial Cells - UA 0-5 SEEN /hpf (5-10); White Blood Cells 10-25 SEEN /hpf (0-5)
[2017-07-13 23:04] LABS: Bacteria RARE /hpf (None Seen)
[2017-07-13 23:05] LABS: Anion Gap 16 (5-15); BUN 20 mg/dL (7-18); Calcium,Total 7.3 mg/dL (8.5-10.1); Chloride 111 mmol/L (98-107); EST Glomerular Filtration Rate 82 mL/min (>60); Est Glom Filt Rate - Afr Amer 99 mL/min (>60); Estimated Creatinine Clearance 71.91 ml/min; Glucose 136 mg/dL (74-106); Sodium Level 144 mmol/L (136-145)
[2017-07-13 23:20] LABS: Lactic Acid 0.5 mmol/L (0.4-2.0)
[2017-07-14] VITALS (21 sets, daily range): BP systolic 95–130; BP diastolic 51–69; PULSE 82–102; RESP 14–25; TEMP 37.2–38.1; O2SAT 96–99
[2017-07-14] MEDS: 0.45% Normal Saline 1,000 ML 125 ML IV ×2 (00:29→10:05)
[2017-07-14 03:20] LABS: Bedside Glucose 66 mg/dL (70-110)
[2017-07-14 04:46] LABS: Bedside Glucose 88 mg/dL (70-110)
[2017-07-14] MEDS: Acetaminophen 325 MG Tablet 650 MG PO ×2 (04:46→22:07)
[2017-07-14] MEDS: 0.9% NaCl Peripheral Flush Adult/Peds IV (04:47)
[2017-07-14 04:57] LABS: Absolute Neutrophil Count 7.2 X10^3/uL (2.0-7.7); Basophil# 0.01 X10^3/uL; Basophil% 0.1 % (0-1); Eosinophil# 0.02 X10^3/uL; Eosinophils% 0.2 % (0-5); Hematocrit 30.6 % (37-47); Hemoglobin 10.6 g/dl (12.0-15.0); Lymphocyte % 18.6 % (19-41); Mean Corp Hgb Conc 34.6 g/gl (32-36); Mean Corpuscular Hgb 30.5 pg (27.0-32.0); Mean Corpuscular Volume 87.9 fL (81-99); Mean Platelet Vol. 8.9 fl (6.2-12.0); Monocyte% 9.8 % (0-10); Neutrophil # 7.24 X10^3/uL (2.7-7.7); Neutrophil % 70.9 % (47-70); Platelet Count 207 K/mm3 (150-450); RBC Distribution Width CV 13.8 % (11.6-14.6); RBC Distribution Width SD 44.7 fl (35.1-43.9); Red Blood Count 3.48 M/mm3 (4.2-5.4); White Blood Count 10.2 K/mm3 (4.4-11.0)
[2017-07-14 05:13] LABS: Anion Gap 11 (5-15); BUN 15 mg/dL (7-18); BUN/Creat Ratio 22.4 RATIO (10-20); Calcium,Total 7.3 mg/dL (8.5-10.1); Chloride 114 mmol/L (98-107); Creatinine, Serum 0.67 mg/dL (0.55-1.02); EST Glomerular Filtration Rate 100 mL/min (>60); Est Glom Filt Rate - Afr Amer 121 mL/min (>60); Estimated Creatinine Clearance 85.87 ml/min; Glucose 93 mg/dL (74-106); Phosphorus 1.1 mg/dL (2.5-4.9); Potassium 3.8 mmol/L (3.5-5.1); Sodium Level 146 mmol/L (136-145)
[2017-07-14 05:27] LABS: POSITIVE COUNT NO; POSITIVE DIFFERENTIAL NO; POSITIVE MORPHOLOGY NO
[2017-07-14 08:11] LABS: Bedside Glucose 83 mg/dL (70-110)
--- NOTE | 2017-07-14 09:19 | PN_ITS ---
Patient Problems: Active and Suspected Problems DKA (diabetic ketoacidoses) (Acute) Hyperkalemia (Acute) Metabolic encephalopathy (Acute) Subjective: DKA is resolved. Patient is still having low blood pressure. Phosphorus low. Had fever last night, T-max 101.7 Fahrenheit, 100.1 Fahrenheit. Right femoral triple-lumen catheter. Patient has history of vaginal candidal infection with whitish, thick discharge. She has been on Invokana at home. Vitals/I&O's: Vital Signs Temp Pulse Resp BP Pulse Ox 100.1 F H 95 25 H 95/53 L 97 07/14/17 05:00 07/14/17 06:00 07/14/17 06:00 07/14/17 06:00 07/14/17 06:00 Oxygen Delivery Method Room Air Weight: 127 lb 10.362 oz Body Mass Index (BMI) 22.4 Finger Stick Blood Glucose 181 Intake and Output for Last 24 Hours 07/12/17 07/13/17 07/14/17 22:59 23:59 23:59 Intake Total 1061 / 1061 Output Total 850 / 850 Balance 211 / 211 General: Alert, Oriented x3, Cooperative HEENT: Atraumatic, PERRLA, EOMI, Normocephalic Neck: Supple, No JVD, Negative Carotid Bruits Lungs: Clear to auscultation, No rhonchi, No wheeze, No rales, Diminished Cardiovascular: Regular rate, Regular Rhythm, Normal S1, Normal S2, No murmurs Abdomen: Bowel Sounds Present, Soft, Non Tender Extremities: No edema, Capillary Refill Less than 3 Seconds, - - Right femoral triple-lumen catheter Skin: No rashes, No breakdown Musculoskeletal: No Tenderness to Palpation of Joints or Extremities Neurological: Cranial nerves II-XII grossly intact Psych/Mental Status: Normal Affect, Appropriate Laboratory Results 07/13/17 11:00: Sodium 149 H, Potassium 3.9, Chloride 121 H, Carbon Dioxide 16.0 L, Anion Gap 12, BUN 24 H, Creatinine 0.90, Estim Creat Clear Calc 63.92, Est GFR (MDRD) Af Amer 86, Est GFR (MDRD) Non-Af 71, BUN/Creatinine Ratio 26.5 H , Glucose 149 H, Calcium 7.5 L 07/13/17 11:00: POC Glucose 148 H 07/13/17 12:31: POC Glucose 134 H 07/13/17 17:03: POC Glucose 123 H 07/13/17 21:33: POC Glucose 139 H 07/13/17 22:15: Urine Color Yellow, Urine Clarity Sl. Cloudy, Urine pH 6.0, Ur Specific [place] 1.010, Urine Protein Negative, Urine Glucose (UA) 1000 H, Urine Ketones 150 H, Urine Occult Blood 25 H, Urine Nitrite Negative, Urine Bilirubin Negative, Urine Urobilinogen Normal, Ur Leukocyte Esterase 500 H, Urine RBC 0-5 SEEN, Urine WBC 10-25 SEEN, Ur Squamous Epith Cells 0-5 SEEN, Urine Bacteria RARE, Urine Mucus 0 SEEN 07/13/17 22:35: Lactic Acid 0.5 07/13/17 22:35: WBC 11.5 H, RBC 3.52 L, Hgb 10.8 L, Hct 31.0 L, MCV 88.1, MCH 30.7, MCHC 34.8, RDW 13.7, RDW Differential 43.8, Plt Count 235, MPV 9.0, Immature Gran % (Auto) 0.300, Neut % (Auto) 77.4 H, Lymph % (Auto) 12.1 L, [place] % (Auto) 10.0, Eos % (Auto) 0.1, Baso % (Auto) 0.1, Absolute Neuts (auto) 8.9 H , Absolute Lymphs (auto) 1.39, Total Counted Not Reportable 07/13/17 22:35: Sodium 144, Potassium 3.0 L, Chloride 111 H, Carbon Dioxide 17.0 L, Anion Gap 16 H, BUN 20 H, Creatinine 0.80, Estim Creat Clear Calc 71.91 , Est GFR (MDRD) Af Amer 99, Est GFR (MDRD) Non-Af 82, BUN/Creatinine Ratio 25.0 H, Glucose 136 H, Calcium 7.3 L 07/14/17 03:16: POC Glucose 66 L 07/14/17 04:40: WBC 10.2, RBC 3.48 L, Hgb 10.6 L, Hct 30.6 L, MCV 87.9, MCH 30.5 , MCHC 34.6, RDW 13.8, RDW Differential 44.7 H, Plt Count 207, MPV 8.9, Immature Gran % (Auto) 0.400, Neut % (Auto) 70.9 H, Lymph % (Auto) 18.6 L, [place] % (Auto) 9.8, Eos % (Auto) 0.2, Baso % (Auto) 0.1, Absolute Neuts (auto) 7.2, Absolute Lymphs (auto) 1.90, Total Counted Not Reportable 07/14/17 04:40: Sodium 146 H, Potassium 3.8, Chloride 114 H, Carbon Dioxide 21.0 , Anion Gap 11, BUN 15, Creatinine 0.67, Estim Creat Clear Calc 85.87, Est GFR ( MDRD) Af Amer 121, Est GFR (MDRD) Non-Af 100, BUN/Creatinine Ratio 22.4 H, Glucose 93, Calcium 7.3 L, Phosphorus 1.1 L* 07/14/17 04:40: POC Glucose 88 07/14/17 07:54: POC Glucose 83 Current Medications Acetaminophen (Tylenol) 650 mg PO Q4H PRN PRN PRN Reason: PAIN Last Admin: 07/14/17 04:46 Dose: 650 mg Chlorhexidine Gluconate () 1 each TOPICAL DAILY SANDY Last Admin: 07/13/17 05:14 Dose: 1 each Dextrose (D50w Syringe) 0 gm IV X1 PRN; Protocol PRN Reason: HYPOGLYCEMIA Last Admin: 07/13/17 08:32 Dose: 25 gm Enoxaparin Sodium (Lovenox) 40 mg SC DAILY@1000 SANDY Last Admin: 07/13/17 07:54 Dose: 40 mg Fluconazole (Diflucan) 400 mg PO X1 ONE Stop: 07/14/17 09:15 Fluconazole (Diflucan) 200 mg PO X1 ONE Stop: 07/15/17 09:15 Sodium Chloride () 250 mls @ 15 mls/hr IV .[id number] PRN PRN Reason: SALINE FLUSH Sodium Chloride () 1,000 mls @ 125 mls/hr IV .Q8H SANDY Last Admin: 07/14/17 00:29 Dose: 125 mls/hr Potassium Phosphate 30 mm/ (Sodium Chloride) 260 mls @ 42 mls/hr IV X1 ONE Stop: 07/14/17 11:32 Last Admin: 07/14/17 05:52 Dose: 42 mls/hr Ceftriaxone Sodium (Rocephin) 1 gm in 50 mls @ 100 mls/hr IV Q24 [facility] Insulin Aspart (Novolog Flexpen ([facility])) 5 units SC TIDCM SANDY PRN Reason: Protocol Last Admin: 07/14/17 08:04 Dose: Not Given Insulin Human NPH (Humulin N ([facility])) 26 units SC QHS [facility] Last Admin: 07/13/17 21:35 Dose: 26 u Magnesium Hydroxide (Milk Of Magnesia) 30 ml PO DAILY PRN PRN PRN Reason: Constipation Ondansetron HCl (Zofran Odt) 8 mg PO Q8H PRN PRN Reason: NAUSEA/VOMITING Promethazine HCl (Phenergan) 25 mg RECTAL Q6H PRN PRN PRN Reason: NAUSEA Sodium Chloride () 5 - 30 ml IV UD PRN PRN Reason: SALINE FLUSH Last Admin: 07/14/17 04:47 Dose: 30 ml Sodium Chloride () 10 - 40 ml IV UD PRN PRN Reason: MULTILUMEN/HICMAN CATH FLUSH Last Admin: 07/13/17 08:32 Dose: 10 ml Assessment/Plan Active and Suspected Problems DKA (diabetic ketoacidoses) (Acute) Hyperkalemia (Acute) Metabolic encephalopathy (Acute) There is a 47-year-old female with history of type 2 diabetes mellitus, admitted with nausea vomiting for 3 days consistent with DKA. Patient was also confused at the time of admission. He was admitted in ICU. Difficulty in peripheral IV line access and so had right groin triple-lumen catheter inserted. DKA is resolved. 1. DKA * Resolved * Started on Levemir * Continue to monitor. * Mild hypotension probably from intravascular volume depletion: IV fluid normal saline +20 mEq KCl at 125 mg/h. When blood pressure is corrected, IV line can be removed. 2. Partially treated UTI with vaginal moniliasis: Moving forward, she is not a good candidate for Invokana as she is only gets UTI and vaginitis from glucosuria.. On IV Rocephin. Can be changed to oral antibiotic. On Diflucan. Electrolyte abnormality: Initially hyperkalemia and then hypokalemia. On electrolytes and kidney function monitor and correct accordingly. 3. Metabolic encephalopathy * baseline, per friend, is normal * secondary to above * U tox screen negative * Improved though still confused. 4. CKD3 * monitor * no need for MOLD CHIPPER at this time 5. DVT proph: LMWH 6. Disposition: Patient is stable to be transferred to PCU. Code Visit Inpatient E&M: [id number] Subs Hosp L3
[2017-07-14] MEDS: Ceftriaxone 1 GM/50 ML BAG IV (10:06)
--- NOTE | 2017-07-14 10:53 | CASEMGMT ---
FLAQUITA SWANSON ASSESSMENT COMPLETE. ROMELLinda STRATA: 2 ADM DX: DKA SEE ATTACHED LINK FOR FULL ASSESSMENT. TRANSITION PLANNING/CARE COORDINATION: PATIENT REPORTS SHE FOLLOWS WITH TACHO RAYMOND FOR HER DIABETES. THE PATIENT LAST SAW TACHO LESS THAN A MONTH AGO AND WAS STARTED ON INVOKANA IN ADDITION TO LONG ACTING INSULIN. PER PATIENT HER LAST AIC WAS 9.5. THE PATIENT STATES SHE HAS A GLUCOMETER, STRIPS, AND INSULIN NEEDLES. THE PATIENT REPORTS SHE CHECKS HER BGL APPROX 3X/DAY. THE PATIENT IS INDEPENDENT, WORKS OUTSIDE THE HOME, AND DRIVES. DENIES HOME GOING NEEDS. FLAQUITA SWANSON WILL REMAIN AVAILABLE TO ASSIST SHOULD NEEDS ARISE. Kashif EPPS BSN, RN-BC, CCM
[2017-07-14] MEDS: 0.9% Normal Saline 1,000 ML 999 ML IV (11:20)
--- NOTE | 2017-07-14 11:49 | NURSING ---
report called to [employer]PERATOR [employer].
[2017-07-14] MEDS: Fluconazole 100 MG Tablet 400 MG PO (12:00)
[2017-07-14 12:01] LABS: Bedside Glucose 144 mg/dL (70-110)
[2017-07-14 17:11] LABS: Bedside Glucose 307 mg/dL (70-110)
[2017-07-14] MEDS: Insulin NPH Human 100 UNITS/ML PEN 26 UNITS SC (22:01)
[2017-07-14 22:46] LABS: Bedside Glucose 198 mg/dL (70-110)
[2017-07-15 02:36] LABS: Bedside Glucose 141 mg/dL (70-110)
[2017-07-15 03:01] VITALS: PULSE 70
[2017-07-15 05:24] VITALS: BP 107/64; PULSE 86; RESP 14; TEMP 37.3; O2SAT 97
[2017-07-15 07:06] LABS: Bedside Glucose 110 mg/dL (70-110)
[2017-07-15 07:10] VITALS: PULSE 97
--- NOTE | 2017-07-15 10:50 | PCM.DC ---
- Discharge Diagnoses Current Active Problems: Current Active and Chronic Problems DKA (diabetic ketoacidoses) (Acute) Hyperkalemia (Acute) Metabolic encephalopathy (Acute) DM2 (diabetes mellitus, type 2) (Chronic) CKD (chronic kidney disease), stage III (Chronic) You will use the following diet at home:: Calorie/Carbohydrate Controlled (specify 1200, 1400, etc) - 1800 ADA diet Additional Instructions: Patient has vaginal moniliasis due to Invokana. Was advised for peritoneal toileting and care before resumption of Invokana. Follow-up labor and delivery registered nurse nurse practitioner. Allergies/Adverse Reactions: Allergies codeine phosphate [From Tylenol-Codeine] Allergy (Verified 07/12/17 10:43) Other Medications to take at Discharge Insulin Aspart [Novolog Flexpen] See Protocol SC TIDCM 09/07/16 Insulin NPH Human Isophane [Novolin N] 26 unit SQ QHS 09/07/16 Cholecalciferol (Vitamin D3) [Vitamin D3] 5,000 unit PO DAILY 07/12/17 Ondansetron [Zofran Odt] 8 mg PO Q8H PRN PRN #10 07/12/17 ProMETHAzine [Phenergan Suppository] 25 mg RECTAL Q6H PRN PRN #10 suppos. 07/12/17 Canagliflozin/Metformin HCl [Invokamet 150-500 mg Tablet] 2 tablet PO DAILY #0 07/15/17 Cefadroxil [Duricef] 500 mg PO BID #5 cap 07/15/17 Fluconazole [Diflucan] 200 mg PO Q72H #2 tab 07/15/17 Potassium Phosphate,Monobasic [K-Phos Original] 500 mg PO TID #9 tablet.prakash 07/15/17 The following prescriptions were given: Fluconazole [Diflucan] 200 mg PO Q72H #2 tab Cefadroxil [Duricef] 500 mg PO BID #5 cap Potassium Phosphate,Monobasic [K-Phos Original] 500 mg PO TID #9 tablet.prakash Primary Care Physician: Valentina Jeffers NP-C [Primary Care Provider] - Please Follow Up With: Gwendolyn Hawkins NP-C When: fo DM-2, DKA.
[2017-07-15] MEDS: Cefadroxil 500 MG CAPSULE PO (10:54)
--- NOTE | 2017-07-15 10:54 | DCINST_ITS ---
- Discharge Diagnoses Current Active Problems: Current Active and Chronic Problems DKA (diabetic ketoacidoses) (Acute) Hyperkalemia (Acute) Metabolic encephalopathy (Acute) DM2 (diabetes mellitus, type 2) (Chronic) CKD (chronic kidney disease), stage III (Chronic) You will use the following diet at home:: Calorie/Carbohydrate Controlled ( specify 1200, 1400, etc) - 1800 ADA diet Additional Instructions: Patient has vaginal moniliasis due to Invokana. Was advised for peritoneal toileting and care before resumption of Invokana. Follow -up geospatial information technologist nurse practitioner. Allergies/Adverse Reactions: Allergies codeine phosphate [From Tylenol-Codeine] Allergy (Verified 07/12/17 10:43) Other Medications to take at Discharge Insulin Aspart [Novolog Flexpen] See Protocol SC TIDCM 09/07/16 Insulin NPH Human Isophane [Novolin N] 26 unit SQ QHS 09/07/16 Cholecalciferol (Vitamin D3) [Vitamin D3] 5,000 unit PO DAILY 07/12/17 Ondansetron [Zofran Odt] 8 mg PO Q8H PRN PRN #10 07/12/17 ProMETHAzine [Phenergan Suppository] 25 mg RECTAL Q6H PRN PRN #10 suppos. Canagliflozin/Metformin HCl [Invokamet 150-500 mg Tablet] 2 tablet PO DAILY #0 07/15/17 Cefadroxil [Duricef] 500 mg PO BID #5 cap 07/15/17 Fluconazole [Diflucan] 200 mg PO Q72H #2 tab 07/15/17 Potassium Phosphate,Monobasic [K-Phos Original] 500 mg PO TID #9 tablet.prakash The following prescriptions were given: Fluconazole [Diflucan] 200 mg PO Q72H #2 tab Cefadroxil [Duricef] 500 mg PO BID #5 cap Potassium Phosphate,Monobasic [K-Phos Original] 500 mg PO TID #9 tablet.prakash Primary Care Physician: Valentina Jeffers NP-C [Primary Care Provider] - Please Follow Up With: Gwendolyn Hawkins NP-C When: fo DM-2, DKA.
--- NOTE | 2017-07-15 10:54 | PCM.DC.SUM ---
Discharge Date and Diagnosis Date of Admission: 07/12/17 Date of Discharge: 07/15/17 - Primary Discharge Diagnosis Active and Suspected Problems 1. DKA with history of type 2 diabetes mellitus 2. Partially treated UTI with vaginal moniliasis: Electrolyte abnormality: Initially hyperkalemia and then hypokalemia and hypophosphatemia. 3. Metabolic encephalopathy Resolved 4. CKD3 due to diabetic nephropathy. Initial UA shows proteinuria but repeat UA is negative for proteinuria possible due to UTI/DKA - Secondary Discharge Diagnosis Chronic Problems DM2 (diabetes mellitus, type 2) (Chronic) CKD (chronic kidney disease), stage III (Chronic) Hospital Course and Treatment Summary of Care Provided: ] There is a 47-year-old female with history of type 2 diabetes mellitus, admitted with nausea vomiting for 3 days consistent with DKA. Patient was also confused at the time of admission. He was admitted in ICU. Difficulty in peripheral IV line access and so had right groin triple-lumen catheter inserted. DKA is resolved. Later on, patient was transferred to PCU. Seen and examined today General: Alert, Oriented x3, Cooperative HEENT: Atraumatic, PERRLA, EOMI, Normocephalic Neck: Supple, No JVD, Negative Carotid Bruits Lungs: Clear to auscultation, No rhonchi, No wheeze, No rales, Diminished Cardiovascular: Regular rate, Regular Rhythm, Normal S1, Normal S2, No murmurs Abdomen: Bowel Sounds Present, Soft, Non Tender Extremities: No edema, Capillary Refill Less than 3 Seconds. Right femoral triple-lumen catheter removed. No hematoma/bleeding Skin: No rashes, No breakdown Musculoskeletal: No Tenderness to Palpation of Joints or Extremities Neurological: Cranial nerves II-XII grossly intact Psych/Mental Status: Normal Affect, Appropriate 1. DKA Resolved Started on Levemir Continue to monitor. Mild hypotension probably from intravascular volume depletion: IV fluid normal saline +20 mEq KCl at 125 mg/h. When blood pressure is corrected, IV line can be removed. 2. Partially treated UTI with vaginal moniliasis: The patient was advised to follow-up with PCP and production control coordinating clerk nurse practitioner, Ms. Hawkins to further learn about the risk and benefit of Invokana. She was told to hold Invokana until she sees her PCP. Was advised for perineal tolerating and care as Invokana causes glucosuria and risk for UTI/vaginitis. Patient is discharged on 2 more days of cefadroxil and Diflucan. Scripts given. Electrolyte abnormality: Initially hyperkalemia and then hypokalemia. On electrolytes and kidney function monitor and correct accordingly. Prescription given for K-Phos. 3. Metabolic encephalopathy baseline, per friend, is normal secondary to above U tox screen negative Improved. Resolved 4. CKD3 due to diabetic nephropathy. Initial UA shows proteinuria but repeat UA is negative for proteinuria possible due to UTI/DKA monitor no need for REGULATORY AFFAIRS DIRECTOR at this time. 5. DVT proph: LMWH Home Medications: Medications to take at Discharge Insulin Aspart [Novolog Flexpen] See Protocol SC TIDCM 09/07/16 Insulin NPH Human Isophane [Novolin N] 26 unit SQ QHS 09/07/16 Cholecalciferol (Vitamin D3) [Vitamin D3] 5,000 unit PO DAILY 07/12/17 Ondansetron [Zofran Odt] 8 mg PO Q8H PRN PRN #10 07/12/17 ProMETHAzine [Phenergan Suppository] 25 mg RECTAL Q6H PRN PRN #10 suppos. 07/12/17 Canagliflozin/Metformin HCl [Invokamet 150-500 mg Tablet] 2 tablet PO DAILY #0 07/15/17 Cefadroxil [Duricef] 500 mg PO BID #5 cap 07/15/17 Fluconazole [Diflucan] 200 mg PO Q72H #2 tab 07/15/17 Potassium Phosphate,Monobasic [K-Phos Original] 500 mg PO TID #9 tablet.prakash 07/15/17 Following Prescrptions Were Given to Patient: Fluconazole [Diflucan] 200 mg PO Q72H #2 tab Cefadroxil [Duricef] 500 mg PO BID #5 cap Potassium Phosphate,Monobasic [K-Phos Original] 500 mg PO TID #9 tablet.prakash Primary Care Physician: Valentina Jeffers NP-C [Primary Care Provider] - Please Follow Up With: Gwendolyn Hawkins NP-C When: fo DM-2, DKA. Meaningful Use Info Meaningful Use Diagnoses (Choose all that apply): None applicable Code Visit Inpatient E&M: 77080 [facility] Hosp L3
[2017-07-15 10:57] VITALS: BP 116/57; PULSE 77; RESP 16; TEMP 36.9; O2SAT 97
[2017-07-15 11:00] VITALS: BP 116/57; PULSE 77; RESP 16; TEMP 36.9; O2SAT 97
--- NOTE | 2017-07-15 11:14 | NURSING ---
While taking vitals on pt, she was watching an episode of Dr. Akhtar about weight loss and gastric bypass. She commented I wish I could have that surgery so I could lose some weight. Dr. Ayala made aware of this comment.
[2017-07-15] MEDS: Fluconazole 100 MG Tablet 200 MG PO (11:29)
[2017-07-16 10:54] LABS: Pathologist Review Reviewed
[2017-07-16 10:55] LABS: Pathologist Review Reviewed
== END 2017-07-15 12:54 | disposition home or self-care (01) | DRG 637 ==
LOC: ED 12:21 → ICU 12:56 → PCU 07-15 07:34
PROVIDERS: Internal Medicine; Emergency Provider Emergency Medicine; Family Provider Nurse Practitioner; PCP Nurse Practitioner; Visit Provider Internal Medicine
DX: E11.10 Type 2 diabetes mellitus with ketoacidosis without coma (principal); G93.41 Metabolic encephalopathy; E87.5 Hyperkalemia; B37.3 Candidiasis of vulva and vagina; N39.0 Urinary tract infection, site not specified; Z79.4 Long term (current) use of insulin; N18.3 Chronic kidney disease, stage 3 (moderate); E11.22 Type 2 diabetes mellitus with diabetic chronic kidney disease
CPT/HCPCS: 36600; 71045; 80048; 80053; 80307; 81001; 82009; 82803; 82962; 83605; 83735; 84100; 84484; 85025; 87040; 87086; 87088; 87186; 87641; 93005; 99284; J7030; J7050; A4216; C1751; J7799

== ENCOUNTER → 2017-10-10 14:27 | Outpatient (CLI) | payer BC, SELFPAY ==
--- NOTE | 2017-10-10 14:27 | DT_ITS ---
This patient was seen during an EMR downtime October 06, 2017 - October 13, 2017. This patient may have a combination of paper and electronic documentation or all paper documentation. All documentation is viewable within the e-chart portion of [facility] for each patient visit.
[2017-10-11 06:15] LABS: Creatinine, Serum 0.84 mg/dL (0.55-1.02); EST Glomerular Filtration Rate 77 mL/min (>60); Est Glom Filt Rate - Afr Amer 93 mL/min (>60)
== END ==
PROVIDERS: Family Provider Nurse Practitioner; PCP Nurse Practitioner
DX: N12 Tubulo-interstitial nephritis, not specified as acute or chronic (principal)
CPT/HCPCS: 36415; 82565

== ENCOUNTER → 2018-01-09 13:49 | Outpatient (CLI) | payer BC, SELFPAY | LOC: CVS 13:50 | PROVIDERS: Family Provider Nurse Practitioner; PCP Nurse Practitioner; Visit Provider Nurse Practitioner | DX: I82.4Y1 Acute embolism and thrombosis of unspecified deep veins of right proximal lower extremity (principal) | CPT/HCPCS: 93971 ==

== ENCOUNTER → 2019-05-10 16:07 | Outpatient (CLI) | payer OTHER, MEDICAID, SELFPAY ==
[2019-05-07 20:10] VITALS: BMI 26.8
[2019-05-10 17:18] LABS: Absolute Lymphocyte Count 1.74 X10^3/uL (0.83-4.51); Absolute Neutrophil Count 3.2 X10^3/uL (2.0-7.7); Basophil# 0.06 X10^3/uL; Basophil% 1.1 % (0-1); Eosinophil# 0.18 X10^3/uL; Eosinophils% 3.2 % (0-5); Hematocrit 39.3 % (37-47); Hemoglobin 12.5 g/dL (12.0-15.0); Lymphocyte # 1.74 X10^3/ul (4.0); Lymphocyte % 30.9 % (19-41); Mean Corp Hgb Conc 31.8 g/dL (32-36); Mean Corpuscular Hgb 29.8 pg (27.0-32.0); Mean Corpuscular Volume 93.8 fL (81-99); Mean Platelet Vol. 9.4 fl (6.2-12.0); Monocyte# 0.49 X10^3/uL; Monocyte% 8.7 % (0-10); NRBC Flagged by Analyzer 0 % (0-5); Neutrophil # 3.16 X10^3/uL (2.7-7.7); Neutrophil % 55.9 % (47-70); Platelet Count 274 K/mm3 (150-450); RBC Distribution Width CV 13.3 % (11.6-14.6); RBC Distribution Width SD 45.5 fl (35.1-43.9); Red Blood Count 4.19 M/mm3 (4.2-5.4); White Blood Count 5.6 K/mm3 (4.4-11.0)
[2019-05-10 18:03] LABS: AST(SGOT) 29 U/L (15-37); Alanine Aminotransfer ALT/SGPT 46 U/L (13-56); Albumin, Serum 3.7 g/dL (3.2-5.0); Alkaline Phosphatase 86 U/L (45-117); Anion Gap 5 (5-15); BUN 11 mg/dL (7-18); BUN/Creat Ratio 17.5 RATIO (10-20); Calcium,Total 8.6 mg/dL (8.5-10.1); Chloride 103 mmol/L (98-107); Cholesterol 132 mg/dL (200); Creatinine, Serum 0.63 mg/dL (0.55-1.02); EST Glomerular Filtration Rate 107 mL/min (>60); Est Glom Filt Rate - Afr Amer 129 mL/min (>60); Globulin 3.7 g/dL (2.2-4.2); Glucose 96 mg/dL (74-106); High Density Lipoprotein 58 mg/dL; Potassium 3.8 mmol/L (3.5-5.1); Protein, Total 7.4 g/dL (6.4-8.2); Sodium Level 137 mmol/L (136-145); T4 Free Direct 0.89 ng/dL (0.76-1.46); Triglycerides 116 mg/dL; Very Low Density Lipoprotein 23 mg/dL (5-40)
[2019-05-12 11:41] LABS: Thyroid Peroxidase AB 54 IU/mL (0-34)
== END ==
PROVIDERS: Family Provider Nurse Practitioner; PCP Nurse Practitioner; Referring Provider Nurse Practitioner; Visit Provider Nurse Practitioner
DX: E11.9 Type 2 diabetes mellitus without complications (principal); E03.9 Hypothyroidism, unspecified
CPT/HCPCS: 36415; 80053; 80061; 84439; 84443; 85025; 86376

== ENCOUNTER → 2019-07-01 16:18 | Outpatient (CLI) | payer OTHER, MEDICAID, SELFPAY ==
[2019-06-14 18:45] VITALS: BMI 26.6
[2019-07-01 17:29] LABS: Follicle Stimulating Hormone 53.8 mIU/mL; Phosphorus 3.1 mg/dL (2.5-4.9)
== END ==
PROVIDERS: PCP Nurse Practitioner
DX: G47.00 Insomnia, unspecified (principal); N95.1 Menopausal and female climacteric states; R53.83 Other fatigue
CPT/HCPCS: 36415; 83001; 83002; 83735; 84100

== ENCOUNTER → 2019-10-08 | Outpatient (CLI) | payer OTHER, SELFPAY ==
[2019-09-17 19:58] VITALS: BMI 24.5
--- NOTE | 2019-10-08 10:36 | RAD_ITS ---
STUDY: X-RAY - LEFT SHOULDER REASON FOR EXAM: Female, 49 years old. Shoulder pain and stiffness, no trauma TECHNIQUE: 4 view(s) of the shoulder. COMPARISON: None. FINDINGS: There is moderate degenerative arthrosis of the glenohumeral articulation. There is degenerative arthrosis of the acromioclavicular joint without inferior osseous spur formation. Normal acromion. Normal humeral head and visualized proximal humerus. The soft tissue structures are unremarkable. Normal visualized pulmonary apex. RAD/Shoulder min 2 Views IMPRESSION: Arthrosis of the glenohumeral joint as well as the acromioclavicular joint. Electronically Signed: Dennis Ovalles, at 11:16 EDT , Service support ,
== END | disposition home or self-care (01) ==
LOC: HPRAD 10:36
PROVIDERS: PCP Nurse Practitioner; Referring Provider Orthopaedic Surgery; Visit Provider Orthopaedic Surgery
DX: M25.512 Pain in left shoulder (principal)
CPT/HCPCS: 73030

== ENCOUNTER 2022-05-23 17:18 | Emergency (ER) | payer MEDICAID, SELFPAY ==
[2022-05-23 17:20] VITALS: BP 137/70; PULSE 79; RESP 18; TEMP 37.2; O2SAT 98; BMI 25.6
--- NOTE | 2022-05-23 18:00 | RAD_ITS ---
INDICATION: injury EXAMINATION/TECHNIQUE: X-RAY - LEFT FOOT XR Toes Min 2 Views 3 VIEWS COMPARISON: None. FINDINGS: SOFT TISSUES: No soft tissue swelling or gas. No radiopaque foreign body. BONES/JOINTS: There is diffuse osteopenia, there is a mildly comminuted fracture and mild destructive process involving the second distal phalanx without joint space involvement. Remaining bony elements and joint spaces are maintained. RAD/Toe(s) Min 2 Views IMPRESSION: 1. Diffuse osteopenia. 2. There is a fracture with mild comminution appearance involving the second distal phalanx without joint space involvement. 3. No radiopaque foreign bodies. Electronically Signed: Yusuf Yao MD at 18:25 EST ,
--- NOTE | 2022-05-23 19:56 | ED.VIS.LOWEX ---
HPI History of Present Illness Chief Complaint: Lower Extremity Injury Narrative Narrative: 52-year-old female presents with injury to her left toe that she sustained at work today. When asked, she states she does not want to make a [facility] claim. She states that she was moving a mobile staircase, when her left second toe got crushed by it. She accidentally ran over her foot. She sustained a laceration to the tip of the second toe. She has pain in that area. She is unsure of her last tetanus immunization. She states that she is diabetic, but does not regularly take blood thinners. [facility] Medical History Diabetes mellitus type 2, uncontrolled, with complications Frozen shoulder syndrome GERD (gastroesophageal reflux disease) Left shoulder pain Menopausal flushing Neck pain Vitamin D deficiency Home Medications cholecalciferol (vitamin D3) 125 mcg (5,000 unit) capsule 5,000 unit PO DAILY 07/12/17 [History Last Taken Unknown] omeprazole 20 mg capsule,delayed release 20 mg PO DAILY 04/07/20 [History Last Taken Unknown] insulin detemir U-100 100 unit/mL subcutaneous solution (Levemir U-100 Insulin) 26 unit (0.26 mL) subcut QHS 3 months #23.4 mL 09/01/20 [Rx Last Taken Unknown] insulin syringe-needle U-100 0.3 mL 31 gauge x 15/64 #120 ea 09/04/20 [Rx Last Taken Unknown] insulin lispro 100 unit/mL subcutaneous solution 7 unit (0.07 mL) subcut QACBREAK #10 mL 10/09/20 [Rx Last Taken Unknown] tramadol 50 mg tablet 100 mg PO Q6H neck and shoulders #240 tabs 04/03/21 [Rx Last Taken Unknown] cephalexin 500 mg capsule 500 mg PO Q6 #40 caps 05/23/22 [Rx Last Taken Unknown] hydrocodone-acetaminophen 5-325mg 5mg-325mg 1 tab PO Q6H PRN pain 3 days #12 tabs 05/23/22 [Rx Last Taken Unknown] Allergy/AdvReac Type Severity Reaction Status Date / Time clonidine Allergy Rash Verified 05/23/22 17:19 codeine phosphate Allergy Other Verified 05/23/22 17:19 [From Tylenol-Codeine] Family History Father Diabetes Lung cancer Sister Diabetes Aunt Breast cancer Brother Myocardial infarction Other Hypertension Surgical History Carpal tunnel syndrome, bilateral upper limbs Cataracts, bilateral History of elbow surgery Trigger finger of both hands Social History Smoking Status: Never smoker EXAM Physical Exam Const Vital Signs: 05/23/22 17:20 Temperature 98.9 F Temperature Source Temporal Pulse Rate 79 Respiratory Rate 18 Blood Pressure 137/70 H Blood Pressure Mean 92 Pulse Ox 98 Oxygen Delivery Method Room Air MDM MDM MDM Narrative Medical decision making narrative: X-rays were obtained and interpreted by myself. There is a fracture with mild comminution involving the second distal phalanx without joint space involvement. I reviewed the radiology report and agree. She was given a tetanus immunization as she was unsure as to the last update. Additionally she was given her first dose of Keflex here in the emergency department. As this is a partial amputation injury just below the germinal matrix of the nail, there is a possibility that she might lose the tip of her toe. This was expressed to her. Procedure note: Patient was informed of the risk of infection and scarring and partial amputation possibility and acknowledges an understanding. Lidocaine 2% was used as a local anesthetic. As this is an open fracture irrigation was performed extensively. 5 simple interrupted sutures were used to tack down the tip of the toe. 1 suture did go through the nail. Skin edges were approximated. Patient tolerated the procedure well. I discussed patient with podiatry, Dr. Davis. Dry sterile dressing will be applied. She is to change the dressing at least twice a day and keep the area clean and dry. She was given a postoperative shoe and will be weightbearing as tolerated. I wrote her prescriptions for short course of Follansbee, and for Keflex to take 4 times a day for the next 10 days. She is to call the podiatry office tomorrow for an appointment to be seen on Friday. IFISH can be discharged safely home with follow-up. Return instructions were reviewed. Disposition is discharged home in stable condition. Radiography Diagnostic Testing: Clinical Impression(s) from Imaging Studies Toe X-Ray 05/23/22 18:00 IMPRESSION: 1. Diffuse osteopenia. 2. There is a fracture with mild comminution appearance involving the second distal phalanx without joint space involvement. 3. No radiopaque foreign bodies. Electronically Signed: Yusuf Yao MD at 18:25 EST , Discharge Plan Triage Chief Complaint: Lower Extremity Injury ED Provider: [place] Dx/Rx/DC Orders Clinical Impression: Open fracture of toe, Crush injury of toe, Partial traumatic amputation of one lesser toe of left foot Instructions: ED Fracture, Toe, Open Prescriptions: New cephalexin 500 mg capsule 500 mg PO Q6 Qty: 40 0RF hydrocodone-acetaminophen 5-325 mg tablet 1 tab PO Q6H PRN (Reason: pain) 3 Days Qty: 12 0RF No Action omeprazole 20 mg capsule,delayed release(DR/EC) 20 mg PO DAILY (DME) insulin syringe-needle U-100 0.3 mL 31 gauge x 15/64 syringe See Rx Instructions .ROUTE .MEDSUPPLY Qty: 120 12RF Rx Instructions: As directed tramadol 50 mg tablet 100 mg PO Q6H Qty: 240 5RF cholecalciferol (vitamin D3) 5,000 UNIT capsule 5,000 unit PO DAILY Levemir U-100 Insulin 100 unit/mL solution 26 unit SC QHS 90 Days Qty: 23.4 3RF insulin lispro 100 unit/mL solution 7 unit subcut QACBREAK Qty: 10 11RF Primary Care Provider: Chente Mcbride Referrals: Juan Davis DPM [Med Staff - Active Staff] - 05/27/22 Valentina Jeffers NP, SCHOOL LIBRARIAN-C [Med Staff - Adv Practice Prof] - Activity Restrictions/Additional Instructions: Call Dr. Davis's office tomorrow morning, Friday, for an appointment to be seen on Friday. Make sure you are taking the antibiotic. Disposition Disposition: Home, Self Care
[2022-05-23] MEDS: Diphth,Pertuss(Acell),Tet Vac 0.5 ML Vial IM (20:42)
[2022-05-23] MEDS: Cephalexin 250 MG Capsule 500 MG PO (20:42)
[2022-05-23] MEDS: Lidocaine 2% (20 ml mdv) 20 ML Vial INFILT (20:43)
[2022-05-23 21:33] VITALS: RESP 16
== END 2022-05-23 22:19 | disposition home or self-care (01) ==
PROVIDERS: Emergency Provider Emergency Medicine; PCP Family Medicine; Visit Provider Emergency Medicine
DX: S98.142A Partial traumatic amputation of one left lesser toe, initial encounter (principal); E11.69 Type 2 diabetes mellitus with other specified complication; Z23 Encounter for immunization; S97.122A Crushing injury of left lesser toe(s), initial encounter; W23.0XXA Caught, crushed, jammed, or pinched between moving objects, initial encounter; Y99.0 Civilian activity done for income or pay
CPT/HCPCS: 12001; 73660; 90471; 90715; 99283

== ENCOUNTER → 2022-06-03 | Outpatient (CLI) | payer MEDICAID, SELFPAY | END | disposition home or self-care (01) | PROVIDERS: PCP Family Medicine; Visit Provider Podiatrist | DX: L97.522 Non-pressure chronic ulcer of other part of left foot with fat layer exposed (principal) | CPT/HCPCS: 87070; 87205 ==